=== PATIENT | male | born 2000 | race Caucasian/White ===

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

== ENCOUNTER → 2021-04-10 12:01 | Outpatient (CLI) | payer BC, SELFPAY | PROVIDERS: PCP Nurse Practitioner Family; Visit Provider Nurse Practitioner Family | DX: Z20.822 Contact with and (suspected) exposure to COVID-19 (principal) | CPT/HCPCS: U0003 ==

== ENCOUNTER → 2021-08-10 14:55 | Outpatient (CLI) | payer BC, SELFPAY | PROVIDERS: PCP Nurse Practitioner Family; Visit Provider Nurse Practitioner | DX: Z20.822 Contact with and (suspected) exposure to COVID-19 (principal) | CPT/HCPCS: C9803; U0003; U0005 ==

== ENCOUNTER 2022-02-27 17:06 | Emergency (ER) | payer BC, SELFPAY ==
[2022-02-27 17:16] VITALS: BP 135/90; PULSE 85; RESP 16; TEMP 37.2; O2SAT 100; BMI 26.6
--- NOTE | 2022-02-27 18:01 | HMH.EDUTC ---
[facility] [place] Clinical Impression: Viral syndrome, Anxiety Disposition: Home, Self-Care Condition on Discharge: Good Instructions: DI for Viral Syndrome Additional Instructions: Drink plenty of fluids. Take tylenol for pain or fever. Return if you begin to have difficulty breathing. Follow up with your regular doctor. GO TO THE ER FOR ANY WORSENING SYMPTOMS Referrals: Sharda Elias APRN [Primary Care Provider] - Time of Disposition: 18:38 Medical Decision Making - Medical Records Medical records reviewed: No: I reviewed the patient's medical records. - Bayron Inquiry Pt receiving controlled substance: No Vital Signs: 02/27/22 17:16 02/27/22 19:04 Temperature 99.0 F 99 F Temperature Source Oral Pulse Rate 85 Pulse Rate [Right] 85 Respiratory Rate 16 16 Blood Pressure 135/90 Blood Pressure [Right Arm] 135/90 Blood Pressure Mean [Right Arm] 105 Blood Pressure Source [Right Arm] Automatic Cuff Blood Pressure Position [Right Arm] Sitting 02 Sat by Pulse Oximetry 100 Oxygen Delivery Method Room Air - Lab Data Lab Results 02/27/22 18:05: Group A Strep Rapid Negative 02/27/22 18:08: Influenza Type A Ag Negative, Influenza Type B Ag Negative [facility] [place] - General Stated complaint: cold chills, tingling in hands and feet Time Seen by Provider: 02/27/22 18:01 Mode of Arrival: Ambulatory Source of Information: Patient Limitations: No Limitations Description of Symptoms (Recalled from Triage Doc. by RN): pt advises he started feeling bad this morning and has been chilling for about 3 hours. Advises earlier had some tingling in his hands. Pt appears very anxious. He advises he feels a little anxious, and that his body is starting ache all over. - History of Present Illness Provider Complaint: He states that he started feeling bad last night. Today, he has continued to feel bad and he had some chilling this morning. When he was chilling he bacame anxious and some tingling of his hands and feet. At this time he denies any c/o except that he continues to not feel well. - Related Data Allergies Allergy/AdvReac Type Severity Reaction Status Date / Time No Known Allergies Allergy Verified 07/18/20 22:32 [facility] History - Hepatitis A Screen Attestation statement:: This patient has been screened for Hepatitis A risk factors. I have reviewed the patient's past medical history: Yes Medical History: Denies:: Cancer, Diabetes Mellitus Type 1, Diabetes Mellitus Type 2, MRSA Amputation: No - Social History Alcohol Intake: never Occupational Status: employed ROS Obtained: Yes All systems reviewed & no additional complaints - Constitutional Constitutional: Reports chills, Denies fever(s), Reports poor appetite, Reports malaise - Eyes Eyes: Denies eye discharge - ENT Ears, Nose, Mouth, and Throat: Denies dizziness, Denies otalgia, Reports sore throat - Cardiovascular Cardiovascular: Denies chest pain - Respiratory Respiratory: Denies chest congestion, Reports cough Physical Exam - General General appearance: alert, in no apparent distress - Head Head exam: atraumatic, normocephalic, normal inspection - Eye Eye exam: Present: normal appearance, PERRL, EOMI - ENT ENT exam: Present: normal exam, normal oropharynx, mucous membranes moist, TM's normal bilaterally, normal external ear exam - Neck Neck exam: Present: normal inspection, full ROM, trachea midline. Absent: meningismus, lymphadenopathy - Chest Chest inspection: Present: normal inspection, symmetric chest wall rise. Absent: tenderness - Respiratory Respiratory exam: Present: normal lung sounds bilaterally. Absent: respiratory distress - Cardiovascular Cardiovascular exam: Present: regular rate, normal rhythm. Absent: JVD - Abdominal Exam Abdominal exam: Present: soft, normal bowel sounds. Absent: distention, tenderness, guarding - Extremities Exam Extremities exam: Present:
[2022-02-27 18:37] LABS: UTC Influenza A Antigen Negative (Negative)
[2022-02-27 18:38] LABS: UTC Influenza B Antigen Negative (Negative)
[2022-02-27 18:45] LABS: Strep Scrn Group A (Rapid) Negative (Negative)
[2022-02-27 19:04] VITALS: BP 135/90; PULSE 85; RESP 16; TEMP 37.2
== END 2022-02-27 19:05 | disposition home or self-care (01) ==
PROVIDERS: Emergency Provider Nurse Practitioner Family; PCP Nurse Practitioner Family
DX: B34.9 Viral infection, unspecified (principal); R20.2 Paresthesia of skin; F41.9 Anxiety disorder, unspecified
CPT/HCPCS: 87430; 87804; 99213; G0463

== ENCOUNTER 2022-04-12 09:48 | Emergency (ER) | payer BC, SELFPAY ==
[2022-04-12 10:25] VITALS: BP 141/73; PULSE 92; RESP 18; TEMP 36.7; O2SAT 99; BMI 22.6
--- NOTE | 2022-04-12 10:48 | HMH.EDUTC ---
[facility] [place] Clinical Impression: Mononucleosis Qualifiers: Infectious mononucleosis etiology: unspecified organism Infectious mononucleosis complication: without complication Qualified Code(s): B27.90 - Infectious mononucleosis, unspecified without complication Disposition: Home, Self-Care Condition on Discharge: Good Instructions: Mononucleosis, DI for Mononucleosis-Adult Additional Instructions: [place] symptoms will likely clear up in a month or less. But your body is still recovering for another month or two after that, so it?s important to take it easy. Here?s what doctors recommend: Avoid contact sports if your spleen is swollen. Even after symptoms go away, it may take a few additional weeks for the swelling in your spleen to go down, so you?re still at higher risk of rupturing it than usual. In addition to skipping contact sports, don?t engage in heavy lifting or vigorous exercise for at least a month or more after recovering from mono. (For kids, that means no roughhousing with siblings at home either). Eat an anti-inflammatory diet. Raeann recommends eating a diet focus on anti-inflammatory foods, which means you should be eating plenty of fruits and vegetables, and avoiding sugar, dairy, and processed foods. It seems to help ease symptoms, he says. Don?t push yourself to get better faster. Recovering from mono takes time and rest. If you try to resume your normal activities too soon, you could end up prolonging your illness and hindering your recovery process. ?Listen to your body,? suggests Raeann. ?Each person is different; do as much as you can.? Plan for your downtime. Both when you?re still experiencing symptoms and the few months after, you?ll need to spend more time than usual either sleeping or staying off your feet and resting. Plan to have some extra reading material on hand, or movies or TV shows to watch. At any point, whether you are still experiencing mono symptoms or not, see your doctor or go to the emergency room (ER) immediately if you experience any sudden or sharp pains in the left side of your upper abdomen (which could be a sign that your spleen may be ruptured), if you start having difficulty breathing, or if you are urinating much less than normal (indicating that you?re dehydrated). Self-care: Rest: Rest as needed. Slowly start to do more each day as you feel better. Liquids: Liquids will help decrease your fever and prevent dehydration. Ask your primary healthcare provider how much liquid to drink each day and which liquids are best for you. Soothe your throat: Suck on hard candy or throat lozenges. Eat popsicles or frozen drinks. Mix 1 teaspoon of salt in 8 ounces of warm water and gargle. Avoid exercise and contact sports: Ask when you can return to your usual activities and contact sports. Seek care immediately or call 911 if: You urinate very little or not at all. You have severe pain in your abdomen or shoulder. You have trouble swallowing because of the pain. You have shortness of breath. You are confused or have a seizure. Prescriptions: Azithromycin [Z-Jared 250mg Tab] 250 mg PO DIRECTED #6 tab Transmission Status: Pending to [id number] Referrals: Sharda Elias APRN [Primary Care Provider] - As needed Forms: Work/School Release Time of Disposition: 12:02 Medical Decision Making - Bayron Inquiry Pt receiving controlled substance: No Bayron was queried for this patient: No Vital Signs: 04/12/22 10:25 04/12/22 11:24 Temperature 98.1 F 98.1 F Temperature Source Oral Pulse Rate 92 H Pulse Rate [Right Brachial] 92 H Respiratory Rate 18 18 Blood Pressure 141/73 H Blood Pressure [Right Arm] 141/73 H Blood Pressure Mean [Right Arm] 95 Blood Pressure Source [Right Arm] Automatic Cuff Blood Pressure Position [Right Arm] Sitting 02 Sat by Pulse Oximetry 99 Oxygen Delivery Method Room Air - Lab Data Lab results reviewed: Yes: I reviewed the patipablo
[2022-04-12 10:52] LABS: Strep Scrn Group A (Rapid) Negative (Negative)
[2022-04-12 11:24] VITALS: BP 141/73; PULSE 92; RESP 18; TEMP 36.7; O2SAT 99
[2022-04-12 11:26] LABS: Monoscreen (Rapid) Positive (Negative)
== END 2022-04-12 12:09 | disposition home or self-care (01) ==
PROVIDERS: Emergency Provider Nurse Practitioner; PCP Nurse Practitioner Family
DX: B27.90 Infectious mononucleosis, unspecified without complication (principal)
CPT/HCPCS: 86318; 87430; 99212; G0463

== ENCOUNTER → 2022-06-24 07:17 | Outpatient (CLI) | payer BC, SELFPAY ==
[2022-06-24 08:20] LABS: Basophils # 0.1 K/mm3 (0-0.2); Basophils % 1.3 % (0.1-2.0); Eosinophils # 0.1 K/mm3 (0.0-0.4); Eosinophils % 1.2 % (0.1-12.0); Hematocrit 47.8 % (42.0-52.0); Hemoglobin 15.5 g/dL (14.1-18.0); Lymphocytes # 3.3 K/mm3 (0.7-4.5); Lymphocytes % 42.9 % (10-50); Mean Corpuscular HGB Conc 32.4 g/dL (31.8-35.4); Mean Corpuscular Hemoglobin 29.1 pg (27.0-31.2); Mean Platelet Volume 8.2 fl (7.4-10.4); Monocytes # 0.5 K/mm3 (0.1-1.0); Neutrophils # 3.7 K/mm3 (1.8-7.8); Neutrophils % 47.6 % (37.0-80.0); Platelet Count 323 K/mm3 (142-424); Red Blood Count 5.31 M/mm3 (4.60-6.20); Red Cell Distribution Width 13.7 % (11.5-17.5); White Blood Count 7.7 K/mm3 (4.8-10.8)
[2022-06-24 08:35] LABS: Alanine Aminotransferase 18 U/L (12-78); Albumin Level 4.5 g/dl (3.5-5.0); Alkaline Phosphatase 75 U/L (38-126); Aspartate Amino Transferase 27 U/L (17-59); Bilirubin,Total 0.5 mg/dl (0.2-1.3); Blood Urea Nitrogen 14 mg/dl (9-20); Calcium 9.8 mg/dl (8.4-10.2); Carbon Dioxide 31 mmol/L (22.0-30.0); Chloride 104 mmol/L (98-107); Estimated Glomerular Filt Rate 122 ml/min (>60); GFR (African American) 148 ML/MIN (>60); Glucose 81 mg/dl (74-100); Sodium 140 mmol/L (136-145)
[2022-06-24 08:38] LABS: Albumin/Globulin Ratio 1.6 (1.1-1.8); Globulin 2.9 g/dL (1.3-3.2); Total Protein,Serum 7.4 g/dl (6.3-8.2)
[2022-06-24 08:40] LABS: C-Reactive Protein 0.4 mg/L (0-4)
[2022-06-24 08:51] LABS: 25-OH Vitamin D, Total 61.3 ng/mL (30-100)
[2022-06-24 09:24] LABS: Vitamin B12 376 pg/mL (239-931)
[2022-06-25 08:18] LABS: Testosterone,Total 823 ng/dL (264-916)
[2022-06-25 14:20] LABS: EBV Ab VCA, IgG 49.1 U/mL (0.0-17.9); EBV Ab VCA, IgM 83.5 U/mL (0.0-35.9); EBV Nuclear Antigen Ab, IgG <18.0 U/mL (0.0-17.9)
[2022-06-25 22:59] LABS: Antinuclear Antibodies (ANA) Negative
== END ==
PROVIDERS: PCP Nurse Practitioner Family; Visit Provider Nurse Practitioner Family
DX: G93.3 Postviral and related fatigue syndromes (principal); N52.9 Male erectile dysfunction, unspecified
CPT/HCPCS: 36415; 80053; 82306; 82607; 84403; 84443; 85025; 86038; 86140; 86664; 86665

== ENCOUNTER → 2022-07-13 14:51 | Outpatient (CLI) | payer BC, SELFPAY ==
--- NOTE | 2022-07-13 14:59 | US_ITS ---
FINAL REPORT TECHNIQUE: Ultrasound images of the testicles were obtained bilaterally. Color Doppler images were obtained. CLINICAL HISTORY: LEFT VARICOCELE FINDINGS: The right testicle measures 4.4 x 2.9 x 2.5 cm. The left testicle measures 4.3 x 2.6 x 1.8 cm. There is a moderate left varicocele. Arterial flow is identified bilaterally. No intratesticular masses are identified. IMPRESSION: Moderate left varicocele. No evidence of testicular torsion or mass. Reviewed, Interpreted and Dictated by Ben Cheema MD Transcribed by Barbi Denny Authenticated and [facility]
== END ==
PROVIDERS: PCP Nurse Practitioner Family; Visit Provider Nurse Practitioner Family
DX: I86.1 Scrotal varices (principal)
CPT/HCPCS: 76870

== ENCOUNTER 2023-10-06 18:34 | Emergency (ER) | payer BC, SELFPAY ==
[2023-10-06 19:00] VITALS: BP 117/84; PULSE 84; RESP 20; TEMP 37; O2SAT 97; BMI 23.6
--- NOTE | 2023-10-06 19:13 | XR_ITS ---
PROCEDURE INFORMATION: Exam: XR Left Tibia and Fibula Exam date and time: 10/06/2023 7:09 PM Age: 23 years old Clinical indication: Injury or trauma; Other: Nail went in calf; Work related; Puncture; Lower leg; Left; With foreign body TECHNIQUE: Imaging protocol: Radiologic exam of the left tibia and fibula. Views: 2 views. COMPARISON: No relevant prior studies available. FINDINGS: Bones/joints: Normal. Soft tissues: Normal. IMPRESSION: No acute findings.
--- NOTE | 2023-10-06 19:32 | EXP.UTC ---
Discharge Plan Disposition Patient Disposition: Home, Self-Care Condition: Good Prescriptions Prescriptions: New amoxicillin-pot clavulanate 875-125 mg Tablet 1 tab PO Q12H 7 Days Qty: 14 0RF Referrals Follow up/Referrals: Sharda Elias APRN [Primary Care Provider] - See instructions Activity Restrictions/Add. Instructions Additional Instructions/Restrictions: Clean area with antibacterial soap and water May use Neosporin on puncture wound Keep leg elevated to help with swelling Follow up with your Family Doctor if no improvement or any worsening of symptoms Return if needed Take medication as prescribed Motrin and/or Tylenol for pain Clinical Impressions Clinical Impression: Puncture wound Stand Alone Forms Stand Alone Forms: Work/School Release Instructions Patient Instructions: DI for Puncture Wound Discharge ED Provider: Chikis Mixon [facility] [place] General Stated complaint: AO10/06 Lt calf- nail poke Mode of Arrival: Ambulatory Source of Information: Patient and Parent(s) Limitations: No Limitations Time Seen by Provider: 10/06/23 19:33 Description of Symptoms (Recalled from Triage Doc. by RN): PATIENT STATES HE WAS STABBED BY A NAIL TO LEFT CALF APPROX 1 HOUR [employer]ILITY WORK[employer] HEENT Symptoms (Recalled from RN notes): No Resp Symptoms (Recalled from RN notes): No Skin Symptoms (Recalled from RN notes): Yes MS Symptoms (Recalled from RN notes): No Functional Status (Recalled from RN notes): WNL History of Present Illness Provider Complaint: Patient states that he was throwing boards out of the back of his truck and lost his balance and fell on some boards and there was nail sticking out of one of them that went into his left lower leg States that he pulled it out and it bleed quite a bit but he was worried about infection and needing a tetanus where the nail was so dandre Related Data Previous Rx's Medication Instructions Recorded amoxicillin 875 mg-potassium 1 tab PO Q12H 7 days #14 tabs 10/06/23 clavulanate 125 mg tablet Allergies Allergy/AdvReac Type Severity Reaction Status Date / Time No Known Allergies Allergy Verified 07/18/20 22:32 Worker's Comp Is this a Worker's Comp case?: No [facility] Disclaimer: The information contained in this section may have been updated after the patient was seen, as this information can be updated by other users. Medical History (Updated 10/06/23 @ 19:43 by Chikis Mixon APRN) Bicuspid aortic valve Mesenteric adenitis Surgical History (Updated 10/06/23 @ 19:20 by Marii Abbasi RN) H/O wisdom tooth extraction Social History Smoking Status: Unknown if ever smoked alcohol intake: never current occupational status: other Travel in the last 8 weeks: None ROS Obtained: Yes All systems reviewed & no additional complaints except as documented and Yes Systems reviewed as appropriate & no additional complaints except as documented Constitutional Constitutional: Reports system reviewed and no additional complaints, except as documented and Reports as per HPI ENT Ears, Nose, Mouth, and Throat: Reports system reviewed and no additional complaints, except as documented and Reports as per HPI Cardiovascular Cardiovascular: Reports system reviewed and no additional complaints, except as documented and Reports as per HPI Respiratory Respiratory: Reports system reviewed and no additional complaints, except as documented and Reports as per HPI Gastrointestinal Gastrointestingal: Reports system reviewed and no additional complaints, except as documented and as per HPI Integumentary/Breasts Skin/Breast: Reports system reviewed and no additional complaints, except as documented, Reports as per HPI and Reports other (puncture wound left lower leg) Physical Exam General General appearance: alert and in no apparent distress ENT ENT exam: Present mucous membranes moist Chest Chest inspection: Present normal inspection and symmetric chest wall rise Re
[2023-10-06 19:51] VITALS: BP 117/84; PULSE 84; RESP 20; TEMP 37; O2SAT 97
== END 2023-10-06 19:57 | disposition home or self-care (01) ==
PROVIDERS: Emergency Provider Nurse Practitioner; PCP Nurse Practitioner Family
DX: S81.832A Puncture wound without foreign body, left lower leg, initial encounter (principal); Z23 Encounter for immunization; W45.0XXA Nail entering through skin, initial encounter
CPT/HCPCS: 73590; 90715; 96372; 99212; 99214; G0463

== ENCOUNTER 2024-04-02 23:26 | Observation (INO) | payer BC, SELFPAY ==
[2024-04-02 23:28] VITALS: BP 141/82; PULSE 87; RESP 18; TEMP 36.7; O2SAT 97; BMI 24.3
[2024-04-03] VITALS (29 sets, daily range): BP systolic 101–149; BP diastolic 56–96; PULSE 68–101; RESP 15–22; TEMP 36.4–43; O2SAT 67–100; BMI 27.8
[2024-04-03] MEDS: LACTATED RINGERS 1000ML 1,000 ML 999 ML IV (00:05)
[2024-04-03] MEDS: ONDANSETRON 4MG/2ML VIAL 4 MG IV ×2 (00:05→03:25)
--- NOTE | 2024-04-03 00:12 | ED_ITS ---
Discharge Plan Disposition Patient Disposition: Admitted Chief Complaint: Nausea/Vomiting/Diarrhea Clinical Impressions Clinical Impression: Nausea & vomiting, Acute appendicitis Discharge ED Provider: Kayleen James General Adult HPI General Chief complaint: Nausea/Vomiting/Diarrhea Stated complaint: severe abd pain, vomiting Time Seen by Provider: 04/02/24 23:40 Mode of Arrival: Ambulatory Source of Information: Patient Limitations: No Limitations Description of Symptoms (Recalled from ER Triage Doc. by RN): patient ambulatory to ED with complaints of nausea/vomiting since this morning. Patient afebrile at triage, but also complains of body aches, and chills. Slight pain in epigastric region. No known sick contacts that he knows of. History of Present Illness HPI narrative: 24-year-old male presents to the ER with concerns of abdominal pain that has been progressing through the day that developed into nausea and vomiting this evening. Patient complains of bodyaches and chills. He describes pain in the middle of his abdomen he also describes pain in his right lower quadrant. He states it feels somewhat better now than it did earlier, but he still feels ill. Patient has no history of abdominal surgeries, no daily medications, no known drug allergies. Related Data Previous Rx's Medication Instructions Recorded amoxicillin 875 mg-potassium 1 tab PO Q12H 7 days #14 tabs 10/06/23 clavulanate 125 mg tablet Allergies Allergy/AdvReac Type Severity Reaction Status Date / Time No Known Allergies Allergy Verified 07/18/20 22:32 [facility] Disclaimer: The information contained in this section may have been updated after the patient was seen, as this information can be updated by other users. Medical History (Updated 04/03/24 @ 02:24 by Kayleen James MD) Mesenteric adenitis Bicuspid aortic valve Surgical History (Updated 10/06/23 @ 19:20 by Marii Abbasi RN) H/O wisdom tooth extraction Social History (Updated 10/06/23 @ 19:51 by Chikis Mixon APRN) Smoking Status: Never smoker alcohol intake: never current occupational status: other Travel in the last 8 weeks: None ROS Obtained: Yes All systems reviewed & no additional complaints except as documented Constitutional Constitutional: Denies chills, Denies fever(s), Denies headache(s) and Denies weakness Eyes Eyes: Denies change in vision ENT Ears, Nose, Mouth, and Throat: Denies dizziness, Denies headache(s), Denies nasal congestion and Denies sore throat Cardiovascular Cardiovascular: Denies chest pain, Denies dyspnea and Denies leg edema Respiratory Respiratory: Denies cough and Denies dyspnea Gastrointestinal Gastrointestingal: Reports abdominal pain, diarrhea (1 episode), nausea and vomiting (Nonbloody, nonbilious); Denies constipation Genitourinary Male Genitourinary: Denies difficulty urinating Musculoskeletal Musculoskeletal: Denies arthralgias, Denies myalgias, Denies numbness and Denies tingling Integumentary/Breasts Skin/Breast: Denies change in pigmentation Neurologic Neurologic: Denies dizziness, Denies headache(s), Denies numbness, Denies tingling and Denies weakness Physical Exam General General appearance: alert and in no apparent distress Head Head exam: atraumatic and normocephalic Eye Eye exam: Present PERRL and EOMI ENT ENT exam: Present mucous membranes moist Neck Neck exam: Present normal inspection and full ROM Chest Chest inspection: Present symmetric chest wall rise Respiratory Respiratory exam: Present normal lung sounds bilaterally; Absent respiratory distress, wheezes or stridor Cardiovascular Cardiovascular exam: Present regular rate and normal rhythm Abdominal Exam Abdominal exam: Present soft and tenderness (Periumbilical, right lower quadrant); Absent distention, guarding or rebound Extremities Exam Extremities exam: Present full ROM Neurological Exam Neurological exam: Present alert and oriented X3; Absent motor sensory deficit Psychiatric Psychiatric exam: Present normal affect and normal mood Skin Skin exam: Present warm and dry Medical Decision Making [place] Inquiry Pt receiving controlled substance: No Vital Signs: 04/02/24 23:28 04/03/24 00:02 04/03/24 00:30 Temperature 98.1 F Temperature Source Oral Pulse Rate 79 77 Pulse Rate [Right] 87 Respiratory Rate 18 Blood Pressure 113/76 132/84 Blood Pressure [Right Arm] 141/82 H Blood Pressure Mean 89 96 Blood Pressure Mean [Right Arm] 101 Blood Pressure Source [Right Arm] Automatic Cuff Blood Pressure Position [Right Arm] Sitting 02 Sat by Pulse Oximetry 97 100 97 Oxygen Delivery Method Room Air Lab Data Lab Results 04/02/24 23:59: WBC 15.4 H, RBC 5.55, Hgb 16.3, Hct 49.1, MCV 88.4, MCH 29.3, MCHC 33.1, RDW 13.5, Plt Count 323, MPV 8.5, Neut % (Auto) 88.2 H, Lymph % (Auto) 5.9 L, [place] % (Auto) 4.5, Eos % (Auto) 1.0, Baso % (Auto) 0.3, Neut # (Auto) 13.6 H, Lymph # (Auto) 0.9, [place] # (Auto) 0.7, Eos # (Auto) 0.2, Baso # (Auto) 0.1, Total Counted 100, Neutrophils % (Manual) 91 H, Lymphocytes % (Manual) 4 L, Monocytes % (Manual) 2, Eosinophils % (Manual) 2, Basophils % (Manual) 1.0, Platelet Estimate Normal, RBC Morphology Normal, PT 11.1, INR 1.03, Sodium 140, Potassium 4.2, Chloride 105, Carbon Dioxide 26, Anion Gap 13.2, BUN 12, Creatinine 0.80, Estimated Creat Clear 147, Estimated GFR 120, Est GFR ( Amer) 145, Glucose 103 H, Calcium 9.8, Total Bilirubin 0.9, AST 37, ALT 35, Alkaline Phosphatase 89, Total Protein 8.0, Albumin 4.7, Globulin 3.3 H, Albumin/Globulin Ratio 1.4 04/03/24 00:02: Lipase 63 04/03/24 00:50: Lactate 1.4 04/02/24 23:59 04/02/24 23:59 Orders (Tests/Meds): ED MEDICATIONS Generic Name Dose Route Start Last Admin Trade Name Freq PRN Reason Stop Dose Admin Ampicillin Sodium/Sulbactam 100 mls @ 200 mls/hr 04/03/24 02:19 Sodium 3 gm/ Sodium Chloride IV 04/03/24 02:20 ONCE ONE Sodium Chloride 10 ml 04/03/24 00:53 04/03/24 00:54 Sodium Chloride 0.9% 10ml Syr (Rad Only) IV 05/03/24 00:52 10 ml NEEDED PRN Administration Maintain IV Site Discontinued Medications Generic Name Dose Route Start Last Admin Trade Name Freq PRN Reason Stop Dose Admin Lactated Ringer's 1,000 mls @ 999 mls/hr 04/02/24 23:51 04/03/24 00:05 Lactated Ringer's 1000 Ml Bag IV 04/03/24 00:51 999 mls/hr .Q1H1M ONE Administration Iopamidol 75 ml 04/03/24 00:53 04/03/24 00:54 Iopamidol-370 (76%);100ml Bottle IV 04/03/24 00:54 75 ml ONCE ONE Administration Ondansetron HCl 4 mg 04/02/24 23:53 04/03/24 00:05 Ondansetron 4mg/2ml Vial IV 04/02/24 23:54 4 mg ONCE ONE Administration ORDERS Category Date Time Status CT abdomen pelvis w con Stat Cat Scan 04/03/24 00:12 Completed Complete Blood Count Auto Diff Stat Lab 04/02/24 23:59 Completed Comprehensive Metabolic Panel Stat Lab 04/02/24 23:59 Completed Lactic Acid Stat Lab 04/03/24 00:50 Completed Lipase Stat Lab 04/03/24 00:02 Completed PT/INR [Prothrombin Time INR] Stat Lab 04/02/24 23:59 Completed Medical Decision Narrative: In summary, 24-year-old male presents to the ER with concerns of periumbilical and right lower quadrant abdominal pain as well as nausea, vomiting, 1 episode of diarrhea. On initial evaluation patient is hemodynamically stable, afebrile, patient has mild tenderness to palpation of the periumbilical and right lower quadrant without rebound or guarding, abdomen is nonacute. Cardiopulmonary exam reassuring, remainder of exam benign. Differential diagnose includes but not limited to viral syndrome, appendicitis, colitis, electrolyte abnormality, dehydration. Patient received IV fluids, Zofran. Labs personally reviewed demonstrate leukocytosis with left shift, no anemia, CMP without electrolyte abnormality, no findings of kidney or liver dysfunction, normal lactate and lipase. CT abdomen pelvis personally interpreted demonstrates mildly distended appendix with appendicolith present. I am concerned for early appendicitis. Radiology read is in agreement. I discussed this case with Dr. Cordoba with general surgery who would like the patient to have a dose of Unasyn and be admitted. He anticipates likely having to remove patient's appendix in the next 24 hours. I ordered Unasyn, maintenance fluids. Patient has been and continues to be NPO. I discussed this case with the hospitalist who will be admitting the patient. Patient is comfortable with this plan. Critical Care Critical Care Time Critical Care Time: No
--- NOTE | 2024-04-03 00:12 | CT_ITS ---
PROCEDURE INFORMATION: Exam: CT Abdomen And Pelvis With Contrast Exam date and time: 04/03/2024 12:47 AM Age: 24 years old Clinical indication: Abdominal pain; Patient HX: N/v; Additional info: Rlq pain, and periumbilical tenderness TECHNIQUE: Imaging protocol: Computed tomography of the abdomen and pelvis with contrast. Radiation optimization: All CT scans at this facility use at least one of these dose optimization techniques: automated exposure control; mA and/or kV adjustment per patient size (includes targeted exams where dose is matched to clinical indication); or iterative reconstruction. Contrast material: ISOVUE; Contrast volume: 75 ml; Contrast route: IV; COMPARISON: 1. US TESTICULAR 07/13/2022 3:16 PM 2. CR CXR2V XR chest 2V 01/12/2019 11:23 AM FINDINGS: Liver: Normal. Gallbladder and bile ducts: No acute process. Pancreas: Normal. Spleen: Normal. Adrenal glands: The adrenal glands appear normal. Kidneys and ureters: There are no soft tissue renal masses or hydronephrosis. Stomach and bowel: Mild fluid distention of small-bowel loops. Appendix: The appendix is mildly distended with stool and small stones but without significant inflammatory change. Early appendicitis can be considered. Intraperitoneal space: Unremarkable. Vasculature: The abdominal aorta and its major branches appear normal without evidence of aneurysm or stenosis. There are pelvic phleboliths. Lymph nodes: No lymphadenopathy. Urinary bladder: There is moderate distention of the urinary bladder. Reproductive: No acute process. Bones/joints: The visualized osseous structures of the abdomen and pelvis appear normal for patient age. Soft tissues: There is a small fat containing umbilical hernia. IMPRESSION: The appendix is mildly distended with stool and small stones but without significant inflammatory change. Early appendicitis can be considered.
[2024-04-03 00:32] LABS: Chloride 105 mmol/L (98-107); Potassium 4.2 mmoL/L (3.5-5.1); Sodium 140 mmol/L (136-145)
[2024-04-03 00:33] LABS: Basophils # 0.1 K/mm3 (0-0.2); Basophils % 0.3 % (0.1-2.0); Eosinophils # 0.2 K/mm3 (0.0-0.4); Hematocrit 49.1 % (42.0-52.0); Hemoglobin 16.3 g/dL (14.1-18.0); Lymphocytes # 0.9 K/mm3 (0.7-4.5); Lymphocytes % 5.9 % (10-50); Mean Corpuscular HGB Conc 33.1 g/dL (31.8-35.4); Mean Corpuscular Hemoglobin 29.3 pg (27.0-31.2); Mean Corpuscular Volume 88.4 fl (80-94); Mean Platelet Volume 8.5 fl (7.4-10.4); Monocytes # 0.7 K/mm3 (0.1-1.0); Monocytes % 4.5 % (1.7-9.3); Neutrophils # 13.6 K/mm3 (1.8-7.8); Neutrophils % 88.2 % (37.0-80.0); Platelet Count 323 K/mm3 (142-424); Red Blood Count 5.55 M/mm3 (4.60-6.20); Red Cell Distribution Width 13.5 % (11.5-17.5); White Blood Count 15.4 K/mm3 (4.8-10.8)
[2024-04-03 00:34] LABS: Alanine Aminotransferase 35 U/L (12-78); Aspartate Amino Transferase 37 U/L (17-59); Blood Urea Nitrogen 12 mg/dl (9-20); Creatinine Clearance Estimated 147 mL/min (50-200); Estimated Glomerular Filt Rate 120 ml/min (>60); GFR (African American) 145 ML/MIN (>60); MANUAL DIFFERENTIAL MANUAL DIFFERENTIAL (MANUAL DIFF)
[2024-04-03 00:35] LABS: Albumin Level 4.7 g/dl (3.5-5.0); Albumin/Globulin Ratio 1.4 (1.1-1.8); Alkaline Phosphatase 89 U/L (38-126); Anion Gap 13.2 mEq/L (5-15); Bilirubin,Total 0.9 mg/dl (0.2-1.3); Calcium 9.8 mg/dl (8.4-10.2); Carbon Dioxide 26 mmol/L (22.0-30.0); Globulin 3.3 g/dL (1.3-3.2); Glucose 103 mg/dl (74-100); INR 1.03 (0.9-1.1); Prothrombin Time 11.1 seconds (10.1-12.5)
[2024-04-03 00:53] LABS: Lipase 63 U/L (23-300)
[2024-04-03] MEDS: SODIUM CHLORIDE 0.9% 10ML SYR (RAD ONLY) 10 ML IV (00:54)
[2024-04-03] MEDS: IOPAMIDOL-370 (76%);100ML BOTTLE 75 ML IV (00:54)
[2024-04-03 01:19] LABS: Lactic Acid 1.4 mmol/L (0.7-2.1)
[2024-04-03 01:34] LABS: Eosinophils % 2 % (0-3); Lymphocytes % 4 % (10-50); Monocytes % 2 % (2-9); Neutrophils % 91 % (42-76); Total Cells Counted 100
[2024-04-03 01:35] LABS: Platelet Estimate Normal; RBC Morphology Normal
--- NOTE | 2024-04-03 02:15 | PC.NURSE ---
Dr. James speaking with Dr. Cordoba at this time.
--- NOTE | 2024-04-03 02:33 | EXP.HP ---
History of Present Illness *Admission Date: 04/03/24 *Reason for visit:: Right lower quadrant pain *History of present illness: This is a 24-year-old male with no significant past medical history who presents to the emergency department with abdominal pain, nausea and vomiting. He reports body aches and chills as well as pain right in the middle of his abdomen. He states pain was better than it was earlier but still feels not well. Patient states the pain started in the middle of his abdomen and then radiated to his right lower side, also had associated bloating. Denies any abdominal history. Denies any prior surgeries. Emergency department workup notable for distended appendix with appendicolith present. Laboratory evaluation unremarkable. Dr. Cordoba with surgery consulted and recommends n.p.o. with consult in the morning. He is admitted to hospital service for further evaluation management. [facility] Disclaimer: The information contained in this section may have been updated after the patient was seen, as this information can be updated by other users. Medical History Mesenteric adenitis Bicuspid aortic valve Surgical History H/O wisdom tooth extraction Social History (Updated 10/06/23 @ 19:51 by Chikis Mixon APRN) Smoking Status: Never smoker alcohol intake: never current occupational status: other Travel in the last 8 weeks: None Review of Systems Review of Systems Review of systems:: pertinent systems reviewed and negative unless documented below Constitutional Constitutional: Denies headache(s) and Denies weakness ENT Ears, Nose, Mouth, and Throat: Denies dizziness and Denies headache(s) *Musculoskeletal Musculoskeletal: Denies numbness and Denies tingling *Neurologic Neurologic: Denies dizziness, Denies headache(s), Denies numbness, Denies tingling and Denies weakness Meds Home Medications and Allergies Home Medications Medication Instructions Recorded Confirmed Type amoxicillin 875 mg-potassium 1 tab PO Q12H 7 days #14 tabs 10/06/23 Rx clavulanate 125 mg tablet New Prescriptions to Start Prescriptions: Allergies Allergy/AdvReac Type Severity Reaction Status Date / Time No Known Allergies Allergy Verified 07/18/20 22:32 Exam Data for Last 24 hours Vital signs and Labs for Last 24 Hours: Temp Pulse Resp BP Pulse Ox O2 Del Method 98.1 F 77 18 132/84 97 Room Air 04/02/24 23:28 04/03/24 00:30 04/02/24 23:28 04/03/24 00:30 04/03/24 00:30 04/02/24 23:28 Laboratory Results - last 24 hr 04/02/24 23:59: WBC 15.4 H, RBC 5.55, Hgb 16.3, Hct 49.1, MCV 88.4, MCH 29.3, MCHC 33.1, RDW 13.5, Plt Count 323, MPV 8.5, Neut % (Auto) 88.2 H, Lymph % (Auto) 5.9 L, [place] % (Auto) 4.5, Eos % (Auto) 1.0, Baso % (Auto) 0.3, Neut # (Auto) 13.6 H, Lymph # (Auto) 0.9, [place] # (Auto) 0.7, Eos # (Auto) 0.2, Baso # (Auto) 0.1, Total Counted 100, Neutrophils % (Manual) 91 H, Lymphocytes % (Manual) 4 L, Monocytes % (Manual) 2, Eosinophils % (Manual) 2, Basophils % (Manual) 1.0, Platelet Estimate Normal, RBC Morphology Normal, PT 11.1, INR 1.03, Sodium 140, Potassium 4.2, Chloride 105, Carbon Dioxide 26, Anion Gap 13.2, BUN 12, Creatinine 0.80, Estimated Creat Clear 147, Estimated GFR 120, Est GFR ( Amer) 145, Glucose 103 H, Calcium 9.8, Total Bilirubin 0.9, AST 37, ALT 35, Alkaline Phosphatase 89, Total Protein 8.0, Albumin 4.7, Globulin 3.3 H, Albumin/Globulin Ratio 1.4 04/03/24 00:02: Lipase 63 04/03/24 00:50: Lactate 1.4 I & O for Last 24 hours: Intake & Output 03/31/24 04/01/24 04/02/24 04/03/24 23:59 23:59 23:59 23:59 Weight 72.575 kg Constitutional Constitutional: no acute distress *Routine HEENT Exam Head: Present normocephalic Eye: Present EOMI and PERRL ENT: Present mucous membranes moist *Routine Neck Exam Neck: Present supple; Absent lymphadenopathy *Routine Respiratory Exam Respiratory: Present CTA bilaterally *Routine Cardiovascular Exam Cardiovascular: Present RRR *Routine Abdominal Exam Abdominal: Present soft, normoactive bowel sounds and tenderness (Right lower quadrant) *Routine Rectal Exam Rectal:: deferred *Routine Genitalia Exam Genitalia:: deferred *Routine Extremities Exam Extremities: Absent cyanosis, clubbing or edema *Routine Skin Exam Skin: Present warm; Absent rash *Routine Neurological Exam Neurological: Present alert and oriented X3 Assessment and Plan *Assessment and plan (1) Acute appendicitis: Status: Acute Category: Medical Code(s): K35.80 - Unspecified acute appendicitis (2) Nausea & vomiting: Status: Acute Category: Medical Code(s): R11.2 - Nausea with vomiting, unspecified Plan #Acute appendicitis Dr. Cordoba consulted, appreciate recommendations N.p.o. with maintenance IV fluids Continue multimodal pain medication Unasyn per general surgery Symptomatic and supportive care DVT PPx, deferred ambulatory Full code
[2024-04-03] MEDS: AMPICILLIN/SULBACTAM 3 GM in 0.9 % SODIUM CHLORIDE 100 ML IV ×2 (02:38→11:49)
[2024-04-03] MEDS: LACTATED RINGERS 1000ML 1,000 ML 125 ML IV (03:10)
[2024-04-03] MEDS: MORPHINE 2MG/ML SYRINGE 2 MG IV ×2 (03:43→17:35)
--- NOTE | 2024-04-03 04:37 | PC.NURSE ---
pt admitted for appendicitis. npo, reports nausea and gen abd pain, meds given per mar. abd is full and tender
--- NOTE | 2024-04-03 04:49 | PC.NURSE ---
pt vomited 200 ml of milky pink colored milky emesis
[2024-04-03 06:35] LABS: Basophils % 0.2 % (0.1-2.0); Eosinophils % 0.4 % (0.1-12.0); Hematocrit 42.7 % (42.0-52.0); Lymphocytes # 0.7 K/mm3 (0.7-4.5); Lymphocytes % 6.8 % (10-50); Mean Corpuscular HGB Conc 33.3 g/dL (31.8-35.4); Mean Corpuscular Hemoglobin 29.3 pg (27.0-31.2); Mean Corpuscular Volume 88.2 fl (80-94); Mean Platelet Volume 8.4 fl (7.4-10.4); Monocytes # 0.5 K/mm3 (0.1-1.0); Monocytes % 5.2 % (1.7-9.3); Neutrophils # 9.1 K/mm3 (1.8-7.8); Neutrophils % 87.4 % (37.0-80.0); Platelet Count 251 K/mm3 (142-424); Red Blood Count 4.85 M/mm3 (4.60-6.20); Red Cell Distribution Width 13.2 % (11.5-17.5); White Blood Count 10.4 K/mm3 (4.8-10.8)
--- NOTE | 2024-04-03 06:50 | EXP.SURG.CON ---
History of Present Illness *Admission Date: 04/03/24 *Reason for visit:: Appendicitis *History of present illness: This is a 24-year-old male with no significant past medical history who presents to the emergency department with abdominal pain, nausea and vomiting. Symptoms began with abdominal bloating on 04/01/2024. This was followed by nausea. He reports body aches and chills as well as pain right in the middle of his abdomen. After vomiting he had some improvement in his symptoms. He did develop some pain. Patient states the pain started in the middle of his abdomen and then radiated to his right lower side, also had associated bloating. Denies any abdominal history. Denies any prior surgeries. Emergency department workup revealed leukocytosis with left shift. CT scan notable for distended fluid-filled appendix with stool and small appendicoliths consistent with early noncomplicated appendicitis. Laboratory evaluation unremarkable. He is admitted to hospital service for further evaluation management. Patient states that he did have similar symptoms several weeks ago which were self-limited but persisted for about 4 days. [facility] Disclaimer: The information contained in this section may have been updated after the patient was seen, as this information can be updated by other users. Medical History Mesenteric adenitis Bicuspid aortic valve Surgical History H/O wisdom tooth extraction Social History (Updated 10/06/23 @ 19:51 by Chikis Mixon APRN) Smoking Status: Never smoker alcohol intake: never current occupational status: other Travel in the last 8 weeks: None Review of Systems Review of Systems Review of systems:: pertinent systems reviewed and negative unless documented below Constitutional Constitutional: Denies headache(s) and Denies weakness ENT Ears, Nose, Mouth, and Throat: Denies dizziness and Denies headache(s) *Musculoskeletal Musculoskeletal: Denies numbness and Denies tingling *Neurologic Neurologic: Denies dizziness, Denies headache(s), Denies numbness, Denies tingling and Denies weakness Meds Home Medications and Allergies Home Medications Medication Instructions Recorded Confirmed Type amoxicillin 875 mg-potassium 1 tab PO Q12H 7 days #14 tabs 10/06/23 Rx clavulanate 125 mg tablet New Prescriptions to Start Prescriptions: Allergies Allergy/AdvReac Type Severity Reaction Status Date / Time No Known Allergies Allergy Verified 07/18/20 22:32 Exam (Inpt) Vital signs and Labs for Last 24 Hours: Temp Pulse Resp BP Pulse Ox O2 Del Method 98.1 F 76 16 112/59 L 98 Room Air 04/03/24 04:00 04/03/24 04:00 04/03/24 04:00 04/03/24 04:00 04/03/24 04:00 04/03/24 05:00 Laboratory Results - last 24 hr 04/02/24 23:59: WBC 15.4 H, RBC 5.55, Hgb 16.3, Hct 49.1, MCV 88.4, MCH 29.3, MCHC 33.1, RDW 13.5, Plt Count 323, MPV 8.5, Neut % (Auto) 88.2 H, Lymph % (Auto) 5.9 L, [place] % (Auto) 4.5, Eos % (Auto) 1.0, Baso % (Auto) 0.3, Neut # (Auto) 13.6 H, Lymph # (Auto) 0.9, [place] # (Auto) 0.7, Eos # (Auto) 0.2, Baso # (Auto) 0.1, Total Counted 100, Neutrophils % (Manual) 91 H, Lymphocytes % (Manual) 4 L, Monocytes % (Manual) 2, Eosinophils % (Manual) 2, Basophils % (Manual) 1.0, Platelet Estimate Normal, RBC Morphology Normal, PT 11.1, INR 1.03, Sodium 140, Potassium 4.2, Chloride 105, Carbon Dioxide 26, Anion Gap 13.2, BUN 12, Creatinine 0.80, Estimated Creat Clear 147, Estimated GFR 120, Est GFR ( Amer) 145, Glucose 103 H, Calcium 9.8, Total Bilirubin 0.9, AST 37, ALT 35, Alkaline Phosphatase 89, Total Protein 8.0, Albumin 4.7, Globulin 3.3 H, Albumin/Globulin Ratio 1.4 04/03/24 00:02: Lipase 63 04/03/24 00:50: Lactate 1.4 I & O for Labs for Last 24 Hours: Intake & Output 03/31/24 04/01/24 04/02/24 04/03/24 11:59 11:59 11:59 11:59 Output Total 200 / 200 Balance -200 / -200 Weight 183 lb 6.4 oz Comments:: Mild subjective tenderness right lower quadrant Results Labs 04/03/24 06:10 04/02/24 23:59 Labs: Laboratory Results - last 24 hr 04/02/24 23:59: WBC 15.4 H, RBC 5.55, Hgb 16.3, Hct 49.1, MCV 88.4, MCH 29.3, MCHC 33.1, RDW 13.5, Plt Count 323, MPV 8.5, Neut % (Auto) 88.2 H, Lymph % (Auto) 5.9 L, [place] % (Auto) 4.5, Eos % (Auto) 1.0, Baso % (Auto) 0.3, Neut # (Auto) 13.6 H, Lymph # (Auto) 0.9, [place] # (Auto) 0.7, Eos # (Auto) 0.2, Baso # (Auto) 0.1, Total Counted 100, Neutrophils % (Manual) 91 H, Lymphocytes % (Manual) 4 L, Monocytes % (Manual) 2, Eosinophils % (Manual) 2, Basophils % (Manual) 1.0, Platelet Estimate Normal, RBC Morphology Normal, PT 11.1, INR 1.03, Sodium 140, Potassium 4.2, Chloride 105, Carbon Dioxide 26, Anion Gap 13.2, BUN 12, Creatinine 0.80, Estimated Creat Clear 147, Estimated GFR 120, Est GFR ( Amer) 145, Glucose 103 H, Calcium 9.8, Total Bilirubin 0.9, AST 37, ALT 35, Alkaline Phosphatase 89, Total Protein 8.0, Albumin 4.7, Globulin 3.3 H, Albumin/Globulin Ratio 1.4 04/03/24 00:02: Lipase 63 04/03/24 00:50: Lactate 1.4 Assessment and Plan *Assessment and plan (1) Acute appendicitis: Status: Acute Category: Medical Code(s): K35.80 - Unspecified acute appendicitis Plan I spent a good deal of time with the patient discussing the nature of the problem. Given the CT scan findings and presentation this is most likely appendicitis but not absolutely assured. I explained to him the nature and details of the condition and treatment options. Plan for laparoscopic possibly open appendectomy. Nature and details of the proposed procedure along with associated risks including, but not limited to, bleeding, infection, anesthetic risk, damage to adjacent structures, need for open procedure were all explained. Postoperative expectations were discussed with the patient. He understands and agrees to proceed.
[2024-04-03 06:53] LABS: Hemoglobin 14.2 g/dL (14.1-18.0)
[2024-04-03 07:06] LABS: Anion Gap 13.7 mEq/L (5-15); Blood Urea Nitrogen 13 mg/dl (9-20); Calcium 8.7 mg/dl (8.4-10.2); Carbon Dioxide 27 mmol/L (22.0-30.0); Chloride 102 mmol/L (98-107); Creatinine Clearance Estimated 193 mL/min (50-200); Estimated Glomerular Filt Rate 140 ml/min (>60); GFR (African American) 169 ML/MIN (>60); Glucose 103 mg/dl (74-100); Potassium 3.7 mmoL/L (3.5-5.1); Sodium 139 mmol/L (136-145)
--- NOTE | 2024-04-03 10:28 | PC.NURSE ---
pt leaving floor with surgery
--- NOTE | 2024-04-03 10:44 | EXP.ANES.CKL ---
[facility] Disclaimer: The information contained in this section may have been updated after the patient was seen, as this information can be updated by other users. Medical History Mesenteric adenitis Bicuspid aortic valve Surgical History H/O wisdom tooth extraction Social History Smoking Status: Never smoker alcohol intake: never substance use type: denies use current occupational status: other Travel in the last 8 weeks: None [facility] Anesthesia Checklist Patient Identification Patient Identification: Arm Band and Verbal (Name & ) Structural Data Admitted From: Home Planned Operative Procedure/s: Appendectomy Consent for Planned Operative Procedure(s) Verified: Yes Verified Documents: Surgical Consent NPO Status Verified Time NPO: 02:00 (Sip of Sprite) Chart Verification Results Verified: CBC and BMP Additional verifications Anesthesia Reactions: No Airway Assessment Mallampati Score:: Class IV C-Spine Mobility Assessed: Yes TMJ Mobility Assessed: Yes Dentition: Good Dentition Neurological Assessment Level of Consciousness: Awake Hx Seizures: No Numbness or tingling in extremities: No Anesthesia Plan Anesthesia Risk discussed: Yes Anesthesia Plan: Verified ASA Class: II Anesthesia Type: General
[2024-04-03] MEDS: ROPIVACAINE 0.5% 30ML VIAL 150 MG (12:17)
[2024-04-03] MEDS: LIDOCAINE 1% 20ML MDV 20 ML (12:17)
--- NOTE | 2024-04-03 13:01 | EXP.OP.NOTE ---
Date of procedure: 04/03/24 Pre-op Diagnosis:: Acute appendicitis Post-op Diagnosis:: Same Procedure performed:: Laparoscopic appendectomy Surgeon:: Lamont Cordoba MD DRUM DRIER OPERATOR:: Ru Corrigan Anesthesia: GETA Estimated blood loss (mL): 10 Operative findings:: He had a retroperitoneal appendix lateral to the cecum. Mid body of the appendix was quite thickened. . Operative note:: Consent was obtained patient was taken the operating room. Was given preoperative intravenous antibiotics. In the operating room he was placed in a supine position. General anesthesia was induced. Burch catheter was placed. Abdomen was prepped and draped in the standard surgical fashion. Subumbilical skin incision was made and while performing abdominal wall lift Veress needle was inserted. CO2 pneumoperitoneum was achieved to 15 mmHg. 12 mm optical trocar was inserted at the umbilicus. Intraperitoneal contents were visualized. 5 mm trocar was inserted in the suprapubic location and 5 mm trocar was inserted in the right upper abdomen. 0 degree laparoscope was replaced with the 5 mm 30 degree laparoscope. The appendix was identified at the tip of the cecum. Inspection revealed the mid body of the appendix to be rather thickened. It was lateral to the cecum in a retroperitoneal location. It was elevated. Lateral peritoneal attachments were incised. Appendix traversed well into the right lateral abdomen. Mid body of the appendix was rather thickened. The mesoappendix was carefully divided with NEFTALI ultrasonic harmonic laura with care taken to coagulate the appendiceal artery. Dissection was carried down to the appendiceal base. The appendix was divided at its base with endoscopic THUY linear cutting stapling device. Appendix was placed within an Endo Catch retrieval device removed from peritoneal cavity via the umbilical trocar site. Appendiceal staple line was inspected for hemostasis and integrity which was assured. Limited irrigation and suctioning was performed. Additional laparoscopic surveillance was carried out which revealed no other definitive alternative pathology. The terminal ileum was traced for some distance to assess for any evidence of terminal ileitis, inflammatory bowel disease, Meckel's diverticulitis of which none was noted. CO2 pneumoperitoneum was evacuated and trocars were removed. Fascia at the umbilicus was closed with a couple 0 Vicryl sutures. Local anesthetic was infiltrated. Skin incisions were closed with 4-0 Monocryl in a subcuticular fashion. Dermabond and dressings were applied. . Condition: stable Disposition: PACU Complications:: None immediately apparent .
--- NOTE | 2024-04-03 13:25 | XR_ITS ---
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 The heart size and pulmonary vascularity are within normal limits. The mediastinum is within normal limits. Bilateral pulmonary opacities are present, edema versus pneumonia. The bony thorax is intact. IMPRESSION: Bilateral pulmonary opacities, edema versus pneumonia. Reviewed, Interpreted and Dictated by Lamont Carrasquillo III, MD Transcribed by Mary Lou Banda Authenticated and [facility]
[2024-04-03] MEDS: FUROSEMIDE 100MG/10ML VIAL 100 MG IV (13:59)
[2024-04-03] MEDS: HYDROMORPHONE 2MG/ML SYRINGE 0.5 MG IV (14:00)
[2024-04-03 14:10] LABS: ABG Base Excess -1.1 mmol/L (-2.4-2.3); ABG HCO3 24.6 mmhg (22.0-26.0); ABG Oxygen Saturation 92 % (90-100); ABG PCO2 46.3 mmhg (35.0-45.0); ABG PH 7.34 mmol/L (7.35-7.45); ABG PO2 67.6 mmhg (80-100)
--- NOTE | 2024-04-03 14:10 | EXP.PULM.CON ---
History of Present Illness History of present illness: Mr. Huggins is a 24-year-old male no significant smoking history no significant respiratory complaints using any oxygen or inhalers at baseline presented to the hospital with abdominal pain status post appendectomy noted to have worsening respiratory distress in PACU with new oxygen requirements along with pink frothy sputum and pulmonary was called for further evaluation and management. [facility] Disclaimer: The information contained in this section may have been updated after the patient was seen, as this information can be updated by other users. Medical History (Updated 04/03/24 @ 14:13 by Apurva Godinez MD) Acute respiratory failure with hypoxia Mesenteric adenitis Bicuspid aortic valve Surgical History H/O wisdom tooth extraction Social History (Updated 04/03/24 @ 10:45 by Rosario Nino CRNA) Smoking Status: Never smoker alcohol intake: never substance use type: denies use current occupational status: other Travel in the last 8 weeks: None Review of Systems Constitutional Constitutional: Denies fatigue, Denies headache(s), Reports snoring and Denies weakness Eyes Eyes: Denies eye discharge, Denies dry eyes, Denies irritation and Denies itchy eyes ENT Ears, Nose, Mouth, and Throat: Denies dizziness, Denies headache(s), Denies lip swelling and Denies throat swelling *Cardiovascular Cardiovascular: Denies dyspnea and Denies dyspnea on exertion *Respiratory Respiratory: Reports chest congestion, Reports cough, Denies dyspnea, Denies dyspnea on exertion, Denies excessive phlegm production and Reports snoring *Gastrointestinal Gastrointestinal: Denies abdominal pain, Denies belching and Denies cramping *Musculoskeletal Musculoskeletal: Denies numbness and Denies tingling *Neurologic Neurologic: Denies dizziness, Denies headache(s), Denies numbness, Denies tingling and Denies weakness Psychiatric Psychiatric: Denies homicidal ideation and Denies suicidal ideation Endocrine Endocrine: Denies fatigue and Denies heat intolerance Hematologic/Lymphatic Hematologic/Lymphatic: Denies easy bleeding and Denies lymphadenopathy Allergic/Immunologic Allergic/Immunologic: Denies itchy eyes, Denies lip swelling and Denies throat swelling Pulmonology Exam Inpatient Vital signs and Labs for Last 24 Hours: Temp Pulse Resp BP Pulse Ox O2 Del Method 98.5 F 68 16 115/67 98 Room Air 04/03/24 08:00 04/03/24 08:00 04/03/24 08:00 04/03/24 08:00 04/03/24 08:00 04/03/24 09:00 Laboratory Results - last 24 hr 04/02/24 23:59: WBC 15.4 H, RBC 5.55, Hgb 16.3, Hct 49.1, MCV 88.4, MCH 29.3, MCHC 33.1, RDW 13.5, Plt Count 323, MPV 8.5, Neut % (Auto) 88.2 H, Lymph % (Auto) 5.9 L, Arroyo % (Auto) 4.5, Eos % (Auto) 1.0, Baso % (Auto) 0.3, Neut # (Auto) 13.6 H, Lymph # (Auto) 0.9, Arroyo # (Auto) 0.7, Eos # (Auto) 0.2, Baso # (Auto) 0.1, Total Counted 100, Neutrophils % (Manual) 91 H, Lymphocytes % (Manual) 4 L, Monocytes % (Manual) 2, Eosinophils % (Manual) 2, Basophils % (Manual) 1.0, Platelet Estimate Normal, RBC Morphology Normal, PT 11.1, INR 1.03, Sodium 140, Potassium 4.2, Chloride 105, Carbon Dioxide 26, Anion Gap 13.2, BUN 12, Creatinine 0.80, Estimated Creat Clear 147, Estimated GFR 120, Est GFR ( Amer) 145, Glucose 103 H, Calcium 9.8, Total Bilirubin 0.9, AST 37, ALT 35, Alkaline Phosphatase 89, Total Protein 8.0, Albumin 4.7, Globulin 3.3 H, Albumin/Globulin Ratio 1.4 04/03/24 00:02: Lipase 63 04/03/24 00:50: Lactate 1.4 04/03/24 06:10: WBC 10.4 D, RBC 4.85, Hgb 14.2 D, Hct 42.7, MCV 88.2, MCH 29.3, MCHC 33.3, RDW 13.2, Plt Count 251, MPV 8.4, Neut % (Auto) 87.4 H, Lymph % (Auto) 6.8 L, [place]royo % (Auto) 5.2, Eos % (Auto) 0.4, Baso % (Auto) 0.2, Neut # (Auto) 9.1 H, Lymph # (Auto) 0.7, Arroyo # (Auto) 0.5, Eos # (Auto) 0.0, Baso # (Auto) 0.0, Sodium 139, Potassium 3.7, Chloride 102, Carbon Dioxide 27, Anion Gap 13.7, BUN 13, Creatinine 0.70, Estimated Creat Clear 193, Estimated GFR 140, Est GFR ( Amer) 169, Glucose 103 H, Calcium 8.7 I & O for Labs for Last 24 Hours: Intake & Output 03/31/24 04/01/24 04/02/24 04/03/24 23:59 23:59 23:59 23:59 Output Total 200 / 200 Balance -200 / -200 Weight 160 lb 183 lb 6.4 oz Constitutional: Present severe distress Head: Present normocephalic and atraumatic ENT: Present normal exam, normal oropharynx and mucous membranes moist Neck: Present normal inspection and full ROM Respiratory: Present prolonged expiratory phase, respiratory distress, diminished air movement and able to speak in complete sentences; Absent wheezes or crackles Cardiac: Present S1/S2, Tachycardia and radial pulses present GI: Present soft and distention; Absent tenderness or guarding Skin: Present intact; Absent cyanosis or jaundice Neuro: Present alert, awake and oriented x 3 Extremities: Present normal inspection; Absent clubbing or cyanosis Psychiatric: Present normal affect and cooperative Meds Home Medications and Allergies Home Medications Medication Instructions Recorded Confirmed Type hydrocodone 5 mg-acetaminophen 325 1 - 2 tab PO Q6H PRN Pain #21 tabs 04/03/24 Rx mg tablet New Prescriptions to Start Prescriptions: hydrocodone-acetaminophen Lamont Cordoba Allergies Allergy/AdvReac Type Severity Reaction Status Date / Time No Known Allergies Allergy Verified 07/18/20 22:32 Results Laboratory Findings 04/03/24 06:10 04/03/24 06:10 PT/INR, D-dimer PT 11.1 seconds (10.1-12.5) 04/02/24 23:59 INR 1.03 (0.9-1.1) 04/02/24 23:59 Abnormal lab findings: Abnormal Labs 04/02/24 04/03/24 23:59 06:10 WBC 15.4 H Neut % (Auto) 88.2 H 87.4 H Lymph % (Auto) 5.9 L 6.8 L Neut # (Auto) 13.6 H 9.1 H Neutrophils % (Manual) 91 H Lymphocytes % (Manual) 4 L Glucose 103 H 103 H Globulin 3.3 H Assessment and Plan *Assessment and plan (1) Acute respiratory failure with hypoxia: Status: Acute Category: Medical Code(s): J96.01 - Acute respiratory failure with hypoxia Plan Mr. Huggins is a 24-year-old male no significant smoking history no significant respiratory complaints using any oxygen or inhalers at baseline presented to the hospital with abdominal pain status post appendectomy noted to have worsening respiratory distress in PACU with new oxygen requirements along with pink frothy sputum and pulmonary was called for further evaluation and management. Auscultation no significant wheezing. Prolonged expiratory phase. No stridor appreciated. Chest x-ray did not show any dense consolidation airspace disease, bilateral upper lobe vascular congestion noted right greater than left. Patient lethargic, slow to respond. Currently responding to verbal commands. ABG showed mildhypercarbic respiratory failure. Given improving mentation will continue to monitor. No need for NIV at this point of time. Plan: -Continue current antibiotics - Unasyn -Lasix 20 mg IV once -Continue nasal oxygen supplementation to maintain O2 saturation goal of 90 to 95%. Wean as tolerated. -F/U echocardiogram # Thank you for involving pulmonary in this patient care. Will continue to follow.
[2024-04-03 14:11] LABS: Allen's Test Acceptable; Oxygen 5L %; Source Left Radial
--- NOTE | 2024-04-03 14:13 | CA_ITS ---
APPROVED REPORT EXAM: Comprehensive 2D, Doppler, and color-flow Echocardiogram Belt Loop Cutter: Chanell Holloway RVT Ht: 5 ft 8 in Wt: 183lbs BSA: 1.97 BP: 115/67 mmHg Indications: SOA,HYPOXIA,S/P LAP APPENDECTOMY,HX BICUPSID AORTIC VALVE 2D Dimensions LA Volume 26.20 mL LA Volume Index 13.30 mL/m2 (M/F) 16-34 M-Mode Dimensions RVDd 2.86 cm (0.9-2.6) LA Diam 2.73 cm (1.9-4.0) LVDd 4.01 cm (3.5-5.7) LVDs 2.86 cm (3.5-5.7) IVSd 0.64 cm (0.6-1.1) PWd 0.57 cm (0.6-1.1) EF (Teich) 55.80% FS 28.70% EDV (Teich) 70.40 mL TAPSE 2.64 (<1.7) ESV (Teich) 31.10 mL LV Diastology E Decel Time 210 (160-240 msec) E/A Ratio 1.6 Aortic Valve LORRI Index 1.68 cm2/m2 AoV Peak Keyon. 116.0 (50-130 cm/s) AO Peak GR. 5.40 mmHg AO Mean GR. 2.80 (<5 mmHg) AO VTI 21.3 (18-25 cm) LORRI (VTI) 3.39 (2.5-4.5 cm2) Mitral Valve MV E Max Keyon. 81.0 (40-130 cm/s) MV A Velocity 50.0 (40-130 cm/s) E/A Ratio 1.61 MV PHT 62.0 ms Pulmonary Valve PV Peak Velocity 69.0 (50-150 cm/s) Tricuspid Valve TR P. Velocity 198.00 cm/s RAP Estimate 10.00 mmHg RVSP 25.70 mmHg Left Ventricle The left ventricle is normal size. The left ventricular systolic function is normal. The left ventricular ejection fraction is within the normal range. There is normal left ventricular wall thickness. There is normal LV segmental wall motion. The left ventricular diastolic function is normal. LVEF is 55%. Right Ventricle The right ventricle is normal size. The right ventricular systolic function is normal. Atria The left atrium size is normal. The right atrium size is normal. There is no Doppler evidence of interatrial shunt. Aortic Valve The aortic valve is mildly thickened, appears likely bicuspid. There is no aortic valvular stenosis. Trace aortic regurgitation. Mitral Valve The mitral valve is normal in structure. No evidence of mitral valve stenosis. Trace mitral valve regurgitation noted. Tricuspid Valve The tricuspid valve leaflets are thin and pliable. Trace tricuspid regurgitation. There is insufficient TR jet to estimate RVSP. Pulmonic Valve The pulmonary valve is normal in structure. Trace pulmonic regurgitation. Great Vessels The aortic root is normal in size. The ascending aorta is normal in size. IVC is normal in size and collapses >50% with inspiration. Pericardium There is no pericardial effusion. Other Information Study Quality: Adequate Conclusion Normal biventricular systolic size and function. Mildly thickened aortic valve, likely bicuspid. Trace AI. No . Electronically signed by : Esperanza Villarreal MD 04/05/2024 00:22:24
--- NOTE | 2024-04-03 14:32 | PC.NURSE ---
spoke with hospitalist regarding pt condition after returning from surgery. nno @ this time. pt currently sating 90% on 5lnc. temp 99.2 spitting up bloody foam. aware
--- NOTE | 2024-04-03 14:34 | SUR.PHASEI ---
1318- upon arriving into PACU, pt O2 sat was staying in upper 60's, low 70's. O2 applied, lungs auscultated at this time by joseline loredo and reported to be crackles at this time. chelle Rodriguez verbal order to get a CXR at this time. Pt started coughing copius amounts of pink-frothy sputum at 1320. Pt being suctioned by RN. 1325- radiology in at this time for CXR. 1330- chelle Crowley verbal order for us to consult pulmonology. Dr. Godinez notified of pt current status and going to return call. 1340- Hospitalist notified of the pt current status. 1350- MD Benji at bedside assessing pt. md Benji states that pt is okay to proceed to the floor, and that he will be kept inpatient overnight for observation. Dr. Godinez also at bedside at this time discussing plan of care with md Benji. Benji gave verbal order for Lasix 20mg Once now. md Farrah verbal order to obtain blood gases. Respiratory at obtaining these now. 1358- Lasix 20mg given once at this time. 1408- Sputum culture obtained.
--- NOTE | 2024-04-03 14:37 | P.PNANES_ITS ---
[facility] Anesthesia Record Part I Anesthesia Record I Intake, IV Amount: 1,400 Hydration: Adequate Estimated blood loss (mL): 20 Urine output (mL): 30 Blood Products used (#): none Blood Pressure: 148/85 SaO2: 70 Pulse Rate: 100 Airway Patency: Patent Respiratory Rate: 16 Temperature: 97.6 F Patient is:: Drowsy and Unstable Stable to PACU at:: 13:18 Comments:: Cough up frothy pink sptum, believed to be Pulmonary Edema. Conslted with hospitalixt and pulmonary. More stable after time in recovery room. Sent to floor for additonal obversation.
--- NOTE | 2024-04-03 14:43 | SUR.PHASEI ---
1414- detailed report called to joseline munoz on medsurg. Justinern notified of pt current status, and hospitalist/Annangi being consulted on the pt. 1416- pt left in stable condition with joseline munoz by joseline arzola and afoutch. VSS, dressings CDI, family at bedside. Pt transported on 3L o2 via nasal cannula. Pt remains on O2 at transfer.
[2024-04-03] MEDS: FUROSEMIDE 20 MG/2 ML VIAL IV (14:48)
[2024-04-03 15:11] LABS: Microscopic,Cath URINE MICROSCOPIC (MICROSCOPIC)
[2024-04-03 15:47] LABS: Adenovirus,PCR Not Detected (NotDetected); Bordetella Pertussis Not Detected (NotDetected); Chlamydophila Pneumoniae, PCR Not Detected (NotDetected); Coronavirus 19, PCR Not Detected (NotDetected); Coronavirus 229E Not Detected (NotDetected); Coronavirus NL63 Not Detected (NotDetected); Coronavirus OC43 Not Detected (NotDetected); Coronovirus HKU1,PCR Not Detected (NotDetected); Human Metapneumovirus Not Detected (NotDetected); Influenza A, PCR Not Detected (NotDetected); Influenza AH1, 2009 Not Detected (NotDetected); Influenza AH1, PCR Not Detected (NotDetected); Influenza AH3,PCR Not Detected (NotDetected); Influenza B, PCR Not Detected (NotDetected); Mycoplasma Pneumoniae, PCR Not Detected (NotDetected); Parainfluenza 1, PCR Not Detected (NotDetected); Parainfluenza 2, PCR Not Detected (NotDetected); Parainfluenza 3, PCR Not Detected (NotDetected); Parainfluenza 4, PCR Not Detected (NotDetected); Respiratory Syncytial Virus Not Detected (NotDetected); Rhinovirus/Enterovirus Not Detected (NotDetected)
[2024-04-03 15:58] LABS: Appearance,Urine/Cath CLEAR (Clear); Bilirubin,Cath Negative (Negative); Blood, Urine/Cath Negative (Negative); Color,Urine/Cath YELLOW (Yellow); Glucose,Urine/Cath (UA) Negative (Negative); Ketones,Urine/Cath Negative (Negative); Leukocyte Esterase,Cath Negative (Negative); Nitrate,Cath Negative (Negative); Protein,Urine/Cath Negative (Negative); Specific Gravity, Urine/Cath 1.015 (1.005-1.030); Urobilinogen,Cath 0.2 EU/dl (0.2)
--- NOTE | 2024-04-03 16:17 | PC.NURSE ---
pt is becoming more alert. currently on 4lnc and tolerating it well. continues to cough up bloody frothy sputum but it has also lessened.
[2024-04-03 16:29] LABS: WBC,Urine/Cath Occasional #/hpf (0-3)
[2024-04-03] MEDS: HYDROCODONE/APAP 5/325 MG TABLET 1 TAB PO (21:15)
--- NOTE | 2024-04-03 23:42 | PC.NURSE ---
pt ambulated in room, gavin well. no dizziness noted.
[2024-04-04] VITALS: BP 117/70; PULSE 77; RESP 17; TEMP 36.7; O2SAT 92
[2024-04-04] MEDS: LACTATED RINGERS 1000ML 1,000 ML 50 ML IV (00:56)
[2024-04-04 04:00] VITALS: BP 109/54; PULSE 74; RESP 17; TEMP 36.8; O2SAT 100; BMI 28.2
[2024-04-04] MEDS: HYDROCODONE/APAP 5/325 MG TABLET 1 TAB PO ×2 (04:44→11:07)
--- NOTE | 2024-04-04 05:32 | PC.NURSE ---
pt ambulated around room, gavin fairly.
--- NOTE | 2024-04-04 06:50 | PC.NURSE ---
pt reported watery and itching of right eye. provider made aware. meds ordered. went in to check on pt and update. pt reports burning has went away. reported burning briefly in left eye but that has went away also
[2024-04-04 07:53] VITALS: BP 117/56; PULSE 81; RESP 16; TEMP 36.8; O2SAT 95
[2024-04-04 08:00] VITALS: O2SAT 95
--- NOTE | 2024-04-04 08:14 | P.PNANES_ITS ---
[facility] Anesthesia Record Part II Anesthesia Record Part II Discharge Time: 14:15 Destination: Medical Surgical Department PACU nurse assessment reviewed?: Yes Patient Condition:: Good Anesthesia Complications:: None Swallowing reflex intact?: Yes Airway Patency: Patent Cyanosis?: No Blood Pressure: 117/73 SaO2: 95 Respiratory Rate: 20 Pulse Rate: 91 Temperature: 97.9 F Mental Status: Alert & Oriented Pain level:: 3 Nausea and/or vomitting:: None Intake, IV Amount: 0 Hydration: Adequate Comments:: pt's 02 saturation dropped when arriving to PACU. 02 saturations increased but pt was coughing up pink, frothy sputum. Pulmonology was consulted and Hosp italist made aware of situation. Today, O2 saturations are in the upper 90's with minimal oxygen requirements.
[2024-04-04 08:17] VITALS: BP 117/73; PULSE 91; RESP 20; TEMP 36.6; O2SAT 95
--- NOTE | 2024-04-04 09:17 | P.PN_ITS ---
Subjective Narrative: Patient underwent uneventful laparoscopic appendectomy yesterday. Postoperatively in the PACU he had diminished oxygen saturations called productive of pink frothy sputum. Hospitalist physician and pulmonary team involved. This morning he is on very minimal oxygen requirements (1L) per Nasal cannula with appropriate saturations. Describes abdominal soreness from the surgery and coughing and states that mobility has been limited as he is afraid he would tear something . He has ambulated to the bathroom. He has been passing gas when out of bed. He has multiple questions which have been answered to the best of my ability. Exam Data for Last 24 hours Vital signs and Labs for Last 24 Hours: Temp Pulse Resp BP Pulse Ox O2 Del Method O2 Flow Rate 98.3 F 81 20 117/56 L 95 Nasal Cannula 1 04/04/24 07:53 04/04/24 07:53 04/04/24 08:17 04/04/24 07:53 04/04/24 08:00 04/04/24 08:48 04/04/24 08:48 Laboratory Results - last 24 hr 04/03/24 14:08: Specimen Source Left radial, O2 % 5l, ABG pH 7.34 L, ABG pCO2 46.3 H, ABG pO2 67.6 L, ABG HCO3 24.6, ABG Total CO2 26.0, ABG O2 Saturation 92, ABG Base Excess -1.1, Anup Test Acceptable 04/03/24 15:06: Urine Color Yellow, Urine Appearance Clear, Urine pH 8.0, Ur Specific [place] 1.015, Urine Protein Negative, Urine Glucose (UA) Negative, Urine Ketones Negative, Urine Blood Negative, Urine Nitrate Negative, Urine Bilirubin Negative, Urine Urobilinogen 0.2, Ur Leukocyte Esterase Negative, Urine RBC None, Urine WBC Occasional, Ur Squamous Epith Cells None, Urine Bacteria None 04/03/24 15:40: Chlamy pneumoniae PCR Not detected, Adenovirus (PCR) Not detected, B. pertussis DNA (PCR) Not detected, Coronavirus OC43 (PCR) Not detected, Coronavirus HKU1 (PCR) Not detected, Coronavirus 229E (PCR) Not detected, SARS-CoV-2 (PCR) Not detected, Coronavirus NL63 (PCR) Not detected, Human Metapneumovir PCR Not detected, Influenza A (H1) PCR Not detected, Influ A (H1N1/09) PCR Not detected, Influenza A (H3) PCR Not detected, Influenza Type A (PCR) Not detected, Influenza Type B (PCR) Not detected, M. pneumoniae (PCR) Not detected, Parainfluenza 1 (PCR) Not detected, Parainfluenza 2 (PCR) Not detected, Parainfluenza 3 (PCR) Not detected, Parainfluenza 4 (PCR) Not de tected, RSV (PCR) Not detected, Entero/Rhino (PCR) Not detected I & O for Last 24 hours: Intake & Output 04/01/24 04/02/24 04/03/24 04/04/24 11:59 11:59 11:59 11:59 Intake Total 3280 / 3280 Output Total 200 / 200 2950 / 2950 Balance -200 / -200 330 / 330 Weight 183 lb 6.4 oz 186 lb 6.4 oz Microbiology Reports for the Last 24 Hours: Microbiology 04/03/24 14:06 Sputum - Expectorated Sputum Gram Stain - Final *Routine Abdominal Exam Abdominal: Present soft Comments: Mild incisional. Laparoscopic dressings in place. Progress Note: A&P Assessment and plan (1) Acute respiratory failure with hypoxia: Status: Acute Assessment and Plan Assessment and Plan for All Diagnoses:: Patient doing well from a surgical standpoint after eventful laparoscopic appendectomy. Post-operatively he developed respiratory issues characterized by decreased oxygen saturations and cough productive of pink frothy sputum. Continue ongoing management per medical hospitalist team and pulmonary medicine. Increase his ambulation evaluation as soon as he is medically ready.
--- NOTE | 2024-04-04 11:35 | P.PN_ITS ---
Subjective *Date: 04/04/24 *Time: 12:06 Interval history: No acute respiratory events overnight. Patient not in room air. Admits improving respiratory symptoms. Pulmonology Exam Inpatient Vital signs and Labs for Last 24 Hours: Temp Pulse Resp BP Pulse Ox O2 Del Method O2 Flow Rate 98.3 F 81 20 117/56 L 95 Room Air 1 04/04/24 07:53 04/04/24 07:53 04/04/24 08:17 04/04/24 07:53 04/04/24 08:00 04/04/24 10:44 04/04/24 08:48 Laboratory Results - last 24 hr 04/03/24 14:08: Specimen Source Left radial, O2 % 5l, ABG pH 7.34 L, ABG pCO2 46.3 H, ABG pO2 67.6 L, ABG HCO3 24.6, ABG Total CO2 26.0, ABG O2 Saturation 92, ABG Base Excess -1.1, Anup Test Acceptable 04/03/24 15:06: Urine Color Yellow, Urine Appearance Clear, Urine pH 8.0, Ur Specific [place] 1.015, Urine Protein Negative, Urine Glucose (UA) Negative, Urine Ketones Negative, Urine Blood Negative, Urine Nitrate Negative, Urine Bilirubin Negative, Urine Urobilinogen 0.2, Ur Leukocyte Esterase Negative, Urine RBC None, Urine WBC Occasional, Ur Squamous Epith Cells None, Urine B acteria None 04/03/24 15:40: Chlamy pneumoniae PCR Not detected, Adenovirus (PCR) Not detected, B. pertussis DNA (PCR) Not detected, Coronavirus OC43 (PCR) Not detected, Coronavirus HKU1 (PCR) Not detected, Coronavirus 229E (PCR) Not detected, SARS-CoV-2 (PCR) Not detected, Coronavirus NL63 (PCR) Not detected, Human Metapneumovir PCR Not detected, Influenza A (H1) PCR Not detected, Influ A (H1N1/09) PCR Not detected, Influenza A (H3) PCR Not detected, Influenza Type A (PCR) Not detected, Influenza Type B (PCR) Not detected, M. pneumoniae (PCR) Not detected, Parainfluenza 1 (PCR) Not detected, Parainfluenza 2 (PCR) Not detected, Parainfluenza 3 (PCR) Not detected, Parainfluenza 4 (PCR) Not detected, RSV (PCR) Not detected, Entero/Rhino (PCR) Not detected Temp Pulse Resp BP Pulse Ox O2 Del Method 98.5 F 68 16 115/67 98 Room Air 04/03/24 08:00 04/03/24 08:00 04/03/24 08:00 04/03/24 08:00 04/03/24 08:00 04/03/24 09:00 Laboratory Results - last 24 hr 04/02/24 23:59: WBC 15.4 H, RBC 5.55, Hgb 16.3, Hct 49.1, MCV 88.4, MCH 29.3, MCHC 33.1, RDW 13.5, Plt Count 323, MPV 8.5, Neut % (Auto) 88.2 H, Lymph % (Auto) 5.9 L, Creek % (Auto) 4.5, Eos % (Auto) 1.0, Baso % (Auto) 0.3, Neut # (Auto) 13.6 H, Lymph # (Auto) 0.9, Creek # (Auto) 0.7, Eos # (Auto) 0.2, Baso # (Auto) 0.1, Total Counted 100, Neutrophils % (Manual) 91 H, Lymphocytes % (Manual) 4 L, Monocytes % (Manual) 2, Eosinophils % (Manual) 2, Basophils % (Manual) 1.0, Platelet Estimate Normal, RBC Morphology Normal, PT 11.1, INR 1.03, Sodium 140, Potassium 4.2, Chloride 105, Carbon Dioxide 26, Anion Gap 13.2, BUN 12, Creatinine 0.80, Estimated Creat Clear 147, Estimated GFR 120, Est GFR ( Amer) 145, Glucose 103 H, Calcium 9.8, Total Bilirubin 0.9, AST 37, ALT 35, Alkaline Phosphatase 89, Total Protein 8.0, Albumin 4.7, Globulin 3.3 H, Albumin/Globulin Ratio 1.4 04/03/24 00:02: Lipase 63 04/03/24 00:50: Lactate 1.4 04/03/24 06:10: WBC 10.4 D, RBC 4.85, Hgb 14.2 D, Hct 42.7, MCV 88.2, MCH 29.3, MCHC 33.3, RDW 13.2, Plt Count 251, MPV 8.4, Neut % (Auto) 87.4 H, Lymph % (Auto) 6.8 L, Creek % (Auto) 5.2, Eos % (Auto) 0.4, Baso % (Auto) 0.2, Neut # (Auto) 9.1 H, Lymph # (Auto) 0.7, Creek # (Auto) 0.5, Eos # (Auto) 0.0, Baso # (Auto) 0.0, Sodium 139, Potassium 3.7, Chloride 102, Carbon Dioxide 27, Anion Gap 13.7, BUN 13, Creatinine 0.70, Estimated Creat Clear 193, Estimated GFR 140, Est GFR ( Amer) 169, Glucose 103 H, Calcium 8.7 I & O for Labs for Last 24 Hours: Intake & Output 04/01/24 04/02/24 04/03/24 04/04/24 23:59 23:59 23:59 23:59 Intake Total 3040 / 3040 360 / 360 Output Total 3150 / 3150 0 / 0 Balance -110 / -110 360 / 360 Weight 160 lb 183 lb 6.4 oz 186 lb 6.4 oz Intake & Output 03/31/24 04/01/24 04/02/24 04/03/24 23:59 23:59 23:59 23:59 Output Total 200 / 200 Balance -200 / -200 Weight 160 lb 183 lb 6.4 oz Microbiology Reports for the Last 24 Hours: Microbiology 04/03/24 14:06 Sputum - Expectorated Sputum Gram Stain - Final Constitutional: Present severe distress Head: Present normocephalic and atraumatic ENT: Present normal exam, normal oropharynx and mucous membranes moist Neck: Present normal inspection and full ROM Respiratory: Present CTA bilaterally, normal respiratory effort and able to speak in complete sentences; Absent prolonged expiratory phase, respiratory distress, wheezes, crackles or diminished air movement Cardiac: Present S1/S2, Tachycardia and radial pulses present GI: Present soft and distention; Absent tenderness or guarding Skin: Present intact; Absent cyanosis or jaundice Neuro: Present alert, awake and oriented x 3 Extremities: Present normal inspection; Absent clubbing or cyanosis Psychiatric: Present normal affect and cooperative Assessment and Plan *Assessment and plan (1) Acute respiratory failure with hypoxia: Status: Acute Category: Medical Code(s): J96.01 - Acute respiratory failure with hypoxia Plan Mr. Huggins is a 24-year-old male no significant smoking history no significant respiratory complaints using any oxygen or inhalers at baseline presented to the hospital with abdominal pain status post appendectomy noted to have worsening respiratory distress in PACU with new oxygen requirements along with pink frothy sputum and pulmonary was called for further evaluation and management. Auscultation no significant wheezing. Prolonged expiratory phase. No stridor appreciated. Chest x-ray did not show any dense consolidation airspace disease, bilateral upper lobe vascular congestion noted right greater than left. Patient lethargic, slow to respond. Currently responding to verbal commands. ABG showed mildhypercarbic respiratory failure. Given improving mentation will continue to monitor. No need for NIV at this point of time. Interval update: No acute respiratory events overnight. On examination today bilateral clear breath sounds. On room air saturating 94%. Patient denies any further episodes of cough/productive phlegm. Plan: -Complete a total of 3-day course of antibiotics from pulmonary standpoint. Day 2 of 3. Can be discharged home on Augmentin to complete a total of 3-day course. -F/U echocardiogram final report. Recommend following with cardiology. # Thank you for involving pulmonary in this patient care. Will follow the patient in pulmonary clinic in 2 to 3 weeks post discharge.
[2024-04-04 11:54] VITALS: BP 117/67; PULSE 76; RESP 16; TEMP 36.7; O2SAT 94
--- NOTE | 2024-04-04 12:32 | EXP.DC.SUM ---
General Admission date:: 04/03/24 Discharge date: 04/04/24 HPI HPI HPI: This is a 24-year-old male with no significant past medical history who presents to the emergency department with abdominal pain, nausea and vomiting. Symptoms began with abdominal bloating on 04/01/2024. This was followed by nausea. He reports body aches and chills as well as pain right in the middle of his abdomen. After vomiting he had some improvement in his symptoms. He did develop some pain. Patient states the pain started in the middle of his abdomen and then radiated to his right lower side, also had associated bloating. Denies any abdominal history. Denies any prior surgeries. Emergency department workup revealed leukocytosis with left shift. CT scan notable for distended fluid-filled appendix with stool and small appendicoliths consistent with early noncomplicated appendicitis. Laboratory evaluation unremarkable. He is admitted to hospital service for further evaluation management. Patient states that he did have similar symptoms several weeks ago which were self-limited but persisted for about 4 days. Hospital Course Hospital Course Hospital Course: This is a 24-year-old male with no significant past medical history who presents to the emergency department with abdominal pain, nausea and vomiting. He reports body aches and chills as well as pain right in the middle of his abdomen. He states pain was better than it was earlier but still feels not well. Patient states the pain started in the middle of his abdomen and then radiated to his right lower side, also had associated bloating. Denies any abdominal history. Denies any prior surgeries. patient was diagnosed with appendicitis, was operated on for laparoscopic appendectomy, patient became hypoxic in the PACU post procedure likely due to opulmonary edema vs aspiration, started on him augmentin at DC and f/u with cardiology as OP given to f/u on echo, history of AVR. Patient and mom in room agree with DC plan and I answered all their questions, patient will be discharged in stable condition Exam Data for Last 24 hours Vital signs and Labs for Last 24 Hours: Temp Pulse Resp BP Pulse Ox O2 Del Method O2 Flow Rate 98.1 F 76 16 117/67 94 L Room Air 1 04/04/24 11:54 04/04/24 11:54 04/04/24 11:54 04/04/24 11:54 04/04/24 11:54 04/04/24 10:44 04/04/24 08:48 Laboratory Results - last 24 hr 04/03/24 14:08: Specimen Source Left radial, O2 % 5l, ABG pH 7.34 L, ABG pCO2 46.3 H, ABG pO2 67.6 L, ABG HCO3 24.6, ABG Total CO2 26.0, ABG O2 Saturation 92, ABG Base Excess -1.1, Anup Test Acceptable 04/03/24 15:06: Urine Color Yellow, Urine Appearance Clear, Urine pH 8.0, Ur Specific [address] 1.015, Urine Protein Negative, Urine Glucose (UA) Negative, Urine Ketones Negative, Urine Blood Negative, Urine Nitrate Negative, Urine Bilirubin Negative, Urine Urobilinogen 0.2, Ur Leukocyte Esterase Negative, Urine RBC None, Urine WBC Occasional, Ur Squamous Epith Cells None, Urine Bacteria None 04/03/24 15:40: Chlamy pneumoniae PCR Not detected, Adenovirus (PCR) Not detected, B. pertussis DNA (PCR) Not detected, Coronavirus OC43 (PCR) Not detected, Coronavirus HKU1 (PCR) Not detected, Coronavirus 229E (PCR) Not detected, SARS-CoV-2 (PCR) Not detected, Coronavirus NL63 (PCR) Not detected, Human Metapneumovir PCR Not detected, Influenza A (H1) PCR Not detected, Influ A (H1N1/09) PCR Not detected, Influenza A (H3) PCR Not detected, Influenza Type A (PCR) Not detected, Influenza Type B (PCR) Not detected, M. pneumoniae (PCR) Not detected, Parainfluenza 1 (PCR) Not detected, Parainfluenza 2 (PCR) Not detected, Parainfluenza 3 (PCR) Not detected, Parainfluenza 4 (PCR) Not detected, RSV (PCR) Not detected, Entero/Rhino (PCR) Not detected I & O for Last 24 hours: Intake & Output 04/01/24 04/02/24 04/03/24 04/04/24 23:59 23:59 23:59 23:59 Intake Total 3040 / 3040 360 / 360 Output Total 3150 / 3150 0 / 0 Balance -110 / -110 360 / 360 Weight 72.575 kg 83.189 kg 84.55 kg Microbiology Reports for the Last 24 Hours: Microbiology 04/03/24 14:06 Sputum - Expectorated Sputum Gram Stain - Final Constitutional Constitutional: no acute distress *Routine HEENT Exam Head: Present normocephalic Eye: Present EOMI and PERRL ENT: Present mucous membranes moist *Routine Neck Exam Neck: Present supple; Absent lymphadenopathy *Routine Respiratory Exam Respiratory: Present CTA bilaterally *Routine Cardiovascular Exam Cardiovascular: Present RRR *Routine Abdominal Exam Abdominal: Present soft and normoactive bowel sounds; Absent tenderness *Routine Extremities Exam Extremities: Absent cyanosis, clubbing or edema *Routine Skin Exam Skin: Present warm; Absent rash *Routine Neurological Exam Neurological: Present alert and oriented X3 Results Data Completed and Pending Labs on day of discharge: Labs from last 24 hours 04/03/24 04/03/24 04/03/24 15:40 15:06 14:08 Specimen Source Left radial O2 % 5l ABG pH 7.34 L ABG pCO2 46.3 H ABG pO2 67.6 L ABG HCO3 24.6 ABG Total CO2 26.0 ABG O2 Saturation 92 ABG Base Excess -1.1 Anup Test Acceptable Urine Color Yellow Urine Appearance Clear Urine pH 8.[address] 1.015 Urine Protein Negative Urine Glucose (UA) Negative Urine Ketones Negative Urine Blood Negative Urine Nitrate Negative Urine Bilirubin Negative Urine Urobilinogen 0.2 Ur Leukocyte Esterase Negative Urine RBC None Urine WBC Occasional Ur Squamous Epith Cells None Urine Bacteria None Chlamy pneumoniae PCR Not detected Adenovirus (PCR) Not detected B. pertussis DNA (PCR) Not detected Coronavirus OC43 (PCR) Not detected Coronavirus HKU1 (PCR) Not detected Coronavirus 229E (PCR) Not detected SARS-CoV-2 (PCR) Not detected Coronavirus NL63 (PCR) Not detected Human Metapneumovir PCR Not detected Influenza A (H1) PCR Not detected Influ A (H1N1/09) PCR Not detected Influenza A (H3) PCR Not detected Influenza Type A (PCR) Not detected Influenza Type B (PCR) Not detected M. pneumoniae (PCR) Not detected Parainfluenza 1 (PCR) Not detected Parainfluenza 2 (PCR) Not detected Parainfluenza 3 (PCR) Not detected Parainfluenza 4 (PCR) Not detected RSV (PCR) Not detected Entero/Rhino (PCR) Not detected DS: Diagnosis Discharge Diagnosis (1) Acute respiratory failure with hypoxia: Status: Acute Code(s): J96.01 - Acute respiratory failure with hypoxia Meds Home Medications and Allergies Home Medications Medication Instructions Recorded Confirmed Type hydrocodone 5 mg-acetaminophen 325 1 - 2 tab PO Q6H PRN Pain #21 tabs 04/03/24 Rx mg tablet amoxicillin 500 mg-potassium 1 tab PO Q12H 5 days #10 tabs 04/04/24 Rx clavulanate 125 mg tablet (Augmentin) New Prescriptions to Start Prescriptions: amoxicillin-pot clavulanate [Augmentin] Salome Leblanc hydrocodone-acetaminophen Lamont Cordoba Allergies Allergy/AdvReac Type Severity Reaction Status Date / Time No Known Allergies Allergy Verified 07/18/20 22:32 Discharge Plan Disposition Patient Disposition: Home, Self-Care Condition: Good Follow up Plan Follow up with: Lamont Cordoba MD [Staff Physician] - 04/19/24 Rex Villarreal MD [Staff Physician] - 2 weeks Prescriptions/Medication Reconciliation: New hydrocodone-acetaminophen 5-325 mg Tablet 1 - 2 tab PO Q6H PRN (Reason: Pain) Qty: 21 0RF amoxicillin-pot clavulanate [Augmentin] 500-125 mg tablet 1 tab PO Q12H 5 Days Qty: 10 0RF Problem Reconciliation Problems Reviewed?: Yes Patient Discharge Instructions ACTIVITY: Ambulate as tolerated DIET: continue same diet Patient Instructions: DI for Appendicitis -- Adult, DI for Surgical Site Infection Providers Primary Care Provider: Sharda Elias Admit Provider: Ru Bush Attending Provider: uR Bush
--- NOTE | 2024-04-06 11:54 | CARE MANAGER ---
Contacted patient related to hospital discharge. He states he is doing well. He has medication and is aware of follow up appointments. BRADLEY Pinon
== END 2024-04-04 13:57 | disposition home or self-care (01) ==
LOC: ER 23:52 → 2ND 04-03 02:24
PROVIDERS: Nurse Practitioner Acute Care; Surgery; Admitting Provider Internal Medicine Adolescent Medicine; Emergency Provider Emergency Medicine; PCP Nurse Practitioner Family; Visit Provider Internal Medicine Adolescent Medicine
PROC: 0DTJ4ZZ Resection of Appendix, Percutaneous Endoscopic Approach (ICD-10-PCS; CPT 44970; principal; 2024-04-03 12:00)
DX: K35.890 Other acute appendicitis without perforation or gangrene (principal); J95.821 Acute postprocedural respiratory failure
CPT/HCPCS: 44970; 36415; 71045; 74177; 80048; 80053; 81001; 82803; 83605; 83690; 85007; 85025; 85610; 87070; 87205; 87581; 87632; 87635; 87798; 93306; 99285; G0378; J2405; Q9967

== ENCOUNTER 2025-07-03 12:12 | Outpatient (CLI) | payer BC, SELFPAY ==
[2025-07-03 20:07] LABS: Coronavirus 19, PCR Not Detected (NotDetected); Influenza A, PCR Not Detected (NotDetected); Influenza B, PCR Not Detected (NotDetected)
--- OUTSIDE RECORDS SUMMARY | 2025-07-05 12:14 | XMS_ITS | Clinical Summary ---
Author Organization [facility] Address [address] [place] [address] Care Team Providers Care Intelligence Intern Name Role Phone Walker Farah M.D. Primary Care Provider [phone] Source Comments [facility] is fully rolled out with thefollowing exceptions:General Clinical Research [facility] Allergies No known active allergies Medications No known medications Social History Tobacco Use Types Packs/Day Years Used Date Smoking Tobacco: Never Assessed Sex and Gender Information Value Date Recorded Sex Assigned at Not on file Legal Sex Male 5:37 AM EST Gender Identity Not on file Sexual Orientation Not on file Plan of Treatment Health Maintenance Due Date Last Done Comments MMR IMMUNIZATION (1 of 1 - S tandard series) 2002 DTAP/Tdap/Td IMMUNIZATION (1 - Tdap) 2008 VARICELLA IMMUNIZATION (1 of 2 - 13+ 2-dose series) 2014 HPV IMMUNIZATION (1 - Male 3 -dose series) 2016 HEPATITIS B IMMUNIZATION (1 of 3 - 19+ 3-dose series) 2020 COVID-19 Vaccine ( - 2023-2 5 season) 2024 AMB SEASONAL FLU VACCINE (#1) 09/21/2025 HIB IMMUNIZATION Aged Out No longer e ligible based on patient's age to complete this topic IPV IMMUNIZATION Aged Out No longer e ligible based on patient's age to complete this topic MCV4 IMMUNIZATION Aged Out No longer eligible based on patient's age to complete this topic MENINGOCOCCAL B VACCINE Aged Out No l onger eligible based on patient's age to complete this topic PNEUMOCOCCAL IMMUNIZATION Aged Out No longer eligible based on patient's age to complete this topic Respiratory Syncytial Virus (RSV) <20mo Aged Out No longer eligible b ased on patient's age to complete this topic Insurance [facility] Address: [facility] [id number] [place] [address] Care Teams Intelligence Intern Relationship Specialty Start Date End Date Walker Farah M.D. [address] [place] [address] PCP - General External Family Practice 01/26/18
--- OUTSIDE RECORDS SUMMARY | 2025-07-05 12:14 | XMS_ITS | Clinical Summary ---
Author Organization Healthcare Address [address] [place] [address] Care Team Providers Care Nanofabrication Specialist Name Role Phone EliasJenifer rajanpablo Amador SENIOR MAINFRAME PROGRAMMER ANALYST Primary Care Provider [phone] Ev Tucker RN Unavailable Unavailable Torin Ramirez MD Unavailable Elder Russell MD Unavailable [phone] Daniela Jordan APRN Unavailable [phone] Monalisa Issa RN Unavailable Unavailable Allergies No known active allergies Medications No known medications Active Problems Problem Noted Date Diagnosed Date Bicuspid aortic valve 02/09/2019 Family History Medical History Relation Name Comments Conversions - Other Mother No known health problems Relation Name Status Comments Mother Social History Tobacco Use Types Packs/Day Years Used Date Smoking Tobacco: Never Smokeless Tobacco: Never Tobacco Cessation:Counseling Given: No Sex and Gender Information Value Date Recorded Sex Assigned at Not on file Legal Sex Male 7:12 PM EDT Gender Identity Not on file Sexual Orientation Not on file Last Filed Vital Signs Vital Sign Reading Time Taken Comments Blood Pressure 153/92 04/27/2024 11:27 PM EDT Pulse 96 04/27/2024 11:27 PM EDT Temperature 36.8 C (98.3 F) 04/27/2024 11:27 PM EDT Respiratory Rate 15 04/27/2024 11:27 PM EDT Oxygen Saturation 95% 04/27/2024 11:27 PM EDT Inhaled Oxygen Concentration - - Weight 89.9 kg (198 lb 3.1 oz) 04/27/2024 4:44 P M EDT Height 171.2 cm (5' 7.4 ) 05/16/2020 1:48 PM EDT Body Mass Index 30.67 05/16/2020 1:48 PM EDT Plan of Treatment Health Maintenance Due Date Last Done Comments [facility]-Depression Screening 2001 [facility]-Infant/Child/Adol SDOH Screenings 2001 [facility]-Obesity Intervention 2007 HPV Vaccines (1 - Male 3-dose series) 2016 [facility]- SDOH Screenings 2019 [facility]-Adult SDOH Screenings 2019 [id number] Vaccine (1 - season) 2024 [facility]-Influenza Vaccine (#1) 2025 [facility]-DTaP,Tdap,and Td Vaccines (8 - Td or Tdap) 10/06/2033 10/06/2023, 04/06/2012, 05/28/2005, Additional history exists [facility]-Zoster Vaccines (1 of 2) 2051 04/06/2012, 05/16/2009, 07/06/2002 [facility]-Hepatitis B Vaccines Completed 001, 2001, 2001, Additional history exists [facility]-HIB Vaccines Completed 10/05/2002, , 2001, Additional history exists [facility]-Varicella Vaccines Completed 2, 05/16/2009, 07/06/2002 [facility]-IPV Vaccines Completed 06/16/2018, , 10/05/2002, Additional history exists [facility]-Hepatitis A Vaccines Completed 02/27/2019, 05/22 [facility]-HIV Screening Completed 04/27/2024 [facility]-Hepatitis C Screening Completed 04/27/2024 [facility]-Pneumococcal Vaccine: Pediatrics (0 to 5 Years) and At-Risk Patients (6 to 49 Years) Aged Out No longer eligible based on patient's age to complete this topic [facility]-Rotavirus Vaccines Aged Out No lo nger eligible based on patient's age to complete this topic Procedures Procedure Name Priority Date/Time Associated Diagnosis Comments HEPATITIS C ANTIBODY - ED W/REFLEX TO HCV QUANT PCR STAT 04/27/2024 7:16 PM EDT ED HIV 1/2 ANTIBODY/ANTIGEN SCREEN WITH REFLEX TO HIV I/II DIFFERENTIATION STAT 04/27/2024 7:16 PM EDT from Last 3 Months or Most Recently Relevant to Health Maintenance Results * ED HIV 1/2 Antibody/Antigen Screen w/Reflex to HIV 1/2 Differentiation (04/27/2024 7:16 PM EDT) HIV 1 & 2 Antibody/Antigen Screen Non Reactive Non Reactive 04/27/2024 8:24 PM EDT [facility] Comment:Screening for HIV 1 & 2 antibodies, and P24 antigen is NONREACTIVE. No confirmatory testing is required. Blood Venous blood specimen / Unknown Venipuncture / Unknown 04/27/2024 7:16 PM EDT 04/27/2024 7:43 PM EDT Xi Ramesh MD LAB BLOOD ORDERABLES Final Re sult Performing Organization Address City/[facility] Co de Phone Number [facility] [address] [place] [address] * Hepatitis C Antibody - ED (04/27/2024 7:16 PM EDT) Hepatitis C Antibody Negative Negative 04/27/2024 8:25 PM EDT [facility] Blood Venous blood specimen / Unknown Venipuncture / Unknown 04/27/2024 7:16 PM EDT 04/27/2024 7:43 PM EDT Xi Ramesh MD LAB BLOOD ORDERABLES Final Re sult Performing Organization Address City/State/[facility] Co de Phone Number [facility] [address] [place] [address] from Last 3 Months or Most Recently Relevant to Health Maintenance Insurance [facility] Member Subscriber Plan / Payer (Ef fective 2019-Present) Name:ANDREA JOEL Relation to Subscriber:Child Name:APPLE CALDERA Date of :2001 (Home) Address: [address] [place] [address] Payer ID:[id number] (NAIC) Type:Not on file Address: [address] Care Teams Nanofabrication Specialist Relationship Specialty Start Date End Date Sharda Elias APRN [address] [place] [address] PCP - General 04/03/21 Ev Tucker RN [facility] Registered Nurse 02/01/23 Torin Ramirez MD [address] [place] [address] Consulting Physician Pediatric Cardiology 02/01/23 Elder Russell MD [address] [place] [address] Consulting Physician Cardiology 02/01/23 Daniela Jordan APRN [address] [place] [address] Nurse Practitioner Internal Medicine 02/01/23 Monalisa Issa RN [facility] Registered Nurse Cardiology 02/01/23
--- OUTSIDE RECORDS SUMMARY | 2025-07-05 12:14 | XMS_ITS | Encounter Summary ---
Author Organization [facility] Address [address] [place] [address] Care Team Providers Care Sas Architect Name Role Phone Sharda Elias Perry TUFTER HAND Primary Care Provider [phone] Ev Tucker RN Unavailable Unavailable Torin Ramirez MD Unavailable Elder Russell MD Unavailable [phone] Daniela Jordan TUFTER HAND Unavailable [phone] Monalisa Issa RN Unavailable Unavailable Reason for Referral * Imaging (Routine) - Closed Specialty Diagnoses / Procedures Referred By Contac t Referred To Contact Cardiology Diagnoses Bicuspid aortic valve Procedures Echo , Adult Congenital Transthoracic (TTE) Complete Elder Russell MD [address] [place] [address] Phone: tel: fax: Referral ID Status Reason Start Date Expiration Date V isits Requested Visits Authorized [id number] Closed Perform Procedure 04/15/2021 10/12/2021 1 1 Encounter Details Date Type Department Care Team (Late st Contact Info) Description 04/15/2021 Orders Only [facility] [place] [address] [facility]. [address] [place] [address] Mariajose [place] [facility] [address] [place] [address] Bicuspid aortic valve (Primary Dx) Social History Tobacco Use Types Packs/Day Years Used Date Smoking Tobacco: Never Sex and Gender Information Value Date Recorded Sex Assigned at Not on file Legal Sex Male 7:12 PM EDT Gender Identity Not on file Sexual Orientation Not on file documented as of this encounter Plan of Treatment Not on file documented as of this encounter Results * ECHO, ADULT CONGENITAL TRANSTHORACIC COMPLETE (07/10/2021 1:41 PM EDT) PA acc time 140 msec BETZY ISCV PA WA(ACCEL) 15.6 mmHg BETZY ISCV PA acc slope 539.7 cm/s2 BETZY ISCV BSA 1.9 m2 BETZY ISCV LVIDd 46 mm BETZY ISCV IVSd 9 mm BETZY ISCV LVPWd 8 mm BETZY ISCV LV MASS(C)D 122 g BETZY ISCV LVIDs 33 mm BETZY ISCV LA dimension 22 mm BETZY ISCV Ao Root Diam 34 mm BETZY ISCV LVOT diam 23 mm BETZY ISCV LAV(MOD-4ch) 21 mL BETZY ISCV MV E Vmax 93.8 cm/s BETZY ISCV MV A Vmax 48.9 cm/s BETZY ISCV TAPSE 24 mm BETZY ISCV RV s' [place] 12.1 cm/s BETZY ISCV LAV(MOD-2ch) 29 mL BETZY ISCV LV V1 VTI 15.1 cm BETZY ISCV LV V1 Vmax 83.9 cm/s BETZY ISCV LV mean PG 1.5 mmHG BETZY ISCV LV V1 mean 58.0 cm/sec BETZY ISCV LV max PG 2.8 mmHg BETZY ISCV Ao V2 VTI 17.7 cm BETZY ISCV Ao mean PG 2 mmHg BETZY ISCV Ao V2 Vmax 100.8 cm/s BETZY ISCV Ao max PG 4 mmHg BETZY ISCV Ao V2 mean 72.0 cm/s BETZY ISCV LV EDV(MOD-4ch) 84 mL BETZY ISCV LV ESV(MOD4ch) 42 mL BETZY ISCV LV RWT 0.37 mm BETZY ISCV EF(MOD-sp4) 50 % BETZY ISCV MV E/A 1.9 cm/s BETZY ISCV mean PAP 16 mmHg BETZY ISCV AV VTI Index 0.85 BETZY ISCV Anatomical Region Laterality Modality Echocardiography Narrative 07/10/2021 4:12 PM EDT Left Ventricle The left ventricle is normal size. There is normal left ventricular myocardial thickness and mass. No intracardiac mass or thrombus is seen. The left ventricular systolic function is normal.The LVEF is visually estimated at 50 - 55%. The left ventricular wall motion is normal. Right Ventricle Right ventricle size is normal. The right ventricular systolic function is normal. The estimated global right ventricular systolic function based upon the tricuspid annular plane of systolic excursion (TAPSE) is normal (>=17 mm). The estimated global right ventricular systolic function based upon the TDI maximal systolic velocity is normal (>=9.5 cm/s). Unable to estimate RVSP due to inadequate TR signal. Although the spectral Doppler envelope of TR was not adequate for calculating the PAP, the estimated PAP based upon other 2D and Doppler features suggests that the PAP is probably normal or at most mildly elevated. Left Atrium The left atrium volume index is small (<16 mL/m2). Right Atrium The right atrium is dilated by visual assessment. IVC/SVC Based on the IVC size and respiratory variation, the estimated right atrial pressure is 3mmHg. Mitral Valve The mitral valve is normal in appearance with no evidence of mitral valve prolapse. There is trace mitral regurgitation. There is no mitral stenosis. Tricuspid Valve The tricuspid valve is normal in appearance. There is trace tricuspid regurgitation. There is no tricuspid stenosis. Aortic Valve The aortic valve is bicuspid. There is no valvular regurgitation. There is no hemodynamically significant valvular aortic stenosis. The mean gradient is 2 mmHg. The peak gradient is 4 mmHg. Pulmonic Valve The pulmonic valve is grossly normal. There is trace pulmonic regurgitation. There is no pulmonic stenosis. Pericardium No pericardial effusion. Great Vessels The aortic root is normal in size. Study Details A complete echocardiogram using two-dimensional (2D) and m-mode imaging with color and spectral flow Doppler was performed. us Elder Russell MD CV ECHO PROCEDURES Final R esult documented in this encounter Visit Diagnoses Diagnosis Bicuspid aortic valve- Primary Congenital insufficiency of aortic valve Bicuspid aortic valve Congenital insufficiency of aortic valve documented in this encounter Care Teams Sas Architect Relationship Specialty Start Date End Date Shrada Elias APRN [address] [place] [address] PCP - General 04/03/21 Ev Tucker, RN [facility] Registered Nurse 02/01/23 Torin Ramirez MD [address] [place] [address] Consulting Physician Pediatric Cardiology 02/01/23 Elder Russell MD [address] [place] [address] Consulting Physician Cardiology 02/01/23 Daniela Jordan APRN [address] [place] [address] Nurse Practitioner Internal Medicine 02/01/23 Monalisa Issa RN [facility] Registered Nurse Cardiology 02/01/23 documented as of this encounter
--- OUTSIDE RECORDS SUMMARY | 2025-07-05 12:14 | XMS_ITS | Clinical Summary ---
Author Organization [facility] Address [address] [place] [address] Phone Care Team Providers Care Precision Aircraft Systems Assembler Name Role Phone Unavailable Primary Care Provider Unavailabl e Allergies No known active allergies Medications acetaminophen (CHILDREN'S TYLENOL) 160 mg/5 mL suspensionIndica tions:Fever Take by mouth every 4 hours as needed. Active Active Problems Problem Noted Date Diagnosed Date Viral upper respiratory illness 01/11/2012 Fever 01/11/2012 Back pain 01/11/2012 Lesion of skin of face 01/11/2012 Abrasion of elbow, left 01/11/2012 Immunizations Immunization Administration Dates Next Due DTaP 05/28/2005, 2,2001,2000,2001 Hepatitis B, Unspecified Formulation 2001, 2001,2001 HiB, Unspecified Formulation 10/05/2002, 04/02/2002,2001,2000,2001 IPV 05/16/2009, 2,04/02/2002,2000,2001 MMR 05/28/2005,07/06/2002 Pneumococcal Patient Reported 05/28/2005 Varicella 05/16/2009,07/06/2002 Medical History Medical History Date Comments Pneumonia Mesenteric adenitis Impetigo Family History Relation Name Status Comments Father Alive Mother Alive Social History Tobacco Use Types Packs/Day Years Used Date Smoking Tobacco: Never Smokeless Tobacco: Never Alcohol Use Standard Drinks/Week Comments No 0 (1 standard drink = 0.6 oz pur e alcohol) Sexually Active Control Partners Comments Never Sex and Gender Information Value Date Recorded Sex Assigned at Not on file Legal Sex Male 9:13 PM EDT Gender Identity Not on file Sexual Orientation Not on file Obstetrics History Last Filed Vital Signs Vital Sign Reading Time Taken Comments Blood Pressure 98/72 06/29/2013 2:49 PM EDT Pulse 91 06/29/2013 2:49 PM EDT Temperature 36.5 C (97.7 F) 06/29/2013 2:49 PM EDT Respiratory Rate - - Oxygen Saturation 99% 06/29/2013 2:49 PM EDT Inhaled Oxygen Concentration - - Weight 54 kg (119 lb) 06/29/2013 2:49 PM EDT Height 151.1 cm (4' 11.5 ) 06/29/2013 2:49 PM ED T Body Mass Index 23.63 06/29/2013 2:49 PM EDT Plan of Treatment Health Maintenance Due Date Last Done Comments Annual Wellness Exam 2004 DTaP/TDaP/Td (6 - Tdap) 2012 05/28/20 05, 10/05/2002, 2001, Additional history exists HPV (2 - Male 2-dose series) 12/30/2013 06/29/2013 ( Declined) COVID-19 Vaccine (2023- season) 2024 Influenza Vaccine (#1) 2025 Hepatitis B Vaccine Completed 2001, 2001, 2001 Meningococcal B Vaccine Aged Out No l onger eligible based on patient's age to complete this topic Pneumococcal Vaccine 0-49 Aged Out No longer eligible based on [place] [id number] NANCY
== END 2025-07-03 23:59 | disposition home or self-care (01) ==
LOC: LAB.DROPOF 07-05 12:13
PROVIDERS: PCP Nurse Practitioner Family; Visit Provider Student in an Organized Health Care Education/Training Program
DX: J06.9 Acute upper respiratory infection, unspecified (principal)
CPT/HCPCS: 87631

== ENCOUNTER 2025-09-07 06:06 | Emergency (ER) | payer BC, SELFPAY ==
[2025-09-07 06:11] VITALS: BP 123/72; PULSE 75; O2SAT 97
[2025-09-07 06:13] VITALS: BP 123/72; PULSE 71; RESP 16; TEMP 36.9; O2SAT 98; BMI 25.8
--- OUTSIDE RECORDS SUMMARY | 2025-09-07 06:13 | XMS_ITS | Clinical Summary ---
Author Organization [facility] Address [address] [place] [address] Care Team Providers Care Rent And Housing Investigator Name Role Phone Walker Farah MD Primary Care Provider [phone] Source Comments [facility] is fully rolled out with thefollowing exceptions:General Clinical Research [facility] Allergies No known active allergies Medications No [...] of 3 - 19+ 3-dose series) 2020 AMB SEASONAL FLU VACCINE (#1) 07/22/2025 COVID-19 Vaccine (1 - 2023-2 5 season) 2025 HIB IMMUNIZATION Aged Out No longer e [...] complete this topic Insurance NANCY ANGELA NON-TRADITIONAL [facility] Address: [facility] [address] [place] [address] Care Teams Rent And Housing Investigator Relationship Specialty Start Date End Date Walker Farah MD [address] [place] [address] PCP - General External Family Practice 01/26/18
--- OUTSIDE RECORDS SUMMARY | 2025-09-07 06:13 | XMS_ITS | Patient Health Record ---
Author Organization [facility] Address [address] [facility] [address] [id number] Support Name Relationship Address Phone BILLS, OPAL Emergency Contact [address] [phone] ANDREA JOEL Guarantor Unknown Reason For Referral No Information Medications Medication SIG (Take, Route, Fr equency, Duration) Notes Start Date End Date Status ZyrTEC Allergy 10 MG 1 tab(s) orally once a day Active Problems No Known Problems Plan Of Treatment No Information Insurance Providers Payer Name Payer Address Payer Phone Subscriber Number Group Number Insured Name Patient Relationship to Insured Coverage Start Date Coverage End Date NANCY ANGELA CROSSUE SID [address] [place] [address] [phone] [id number] ANDREA JOEL Self - patient is the insured Medical (General) History Hospitalization History Reason Date(Month/Year)
--- OUTSIDE RECORDS SUMMARY | 2025-09-07 06:13 | XMS_ITS | Encounter Summary ---
Author Organization [facility] Address [address] [place] [address] Care Team Providers Care Bistro Attendant Name Role Phone Sharda Elias Perry YARN TEXTURE MACHINE OPERATOR Primary Care Provider [phone] Ev Tucker RN Unavailable Unavailable Torin Ramirez MD Unavailable Elder Russell MD Unavailable [phone] Daniela Jordan YARN TEXTURE MACHINE OPERATOR Unavailable [phone] Monalisa Issa RN Unavailable Unavailable Reason for Referral * Imaging (Routine) - Closed Specialty Diagnoses / Procedures Referred By Contac t Referred To Contact Cardiology Diagnoses Bicuspid aortic valve Procedures Echo , Adult Congenital Transthoracic (TTE) Complete Elder Russell MD [address] [place] [address] Phone: tel: fax: Referral ID Status Reason Start Date Expiration Date V isits Requested Visits Authorized [id number] Closed Perform Procedure 04/15/2021 10/12/2021 1 1 Encounter Details Date Type Department Care Team (Late st Contact Info) Description 04/15/2021 Orders Only [facility] [place] [address] [facility]. [address] [place] [address] Mariajose Gillette [facility] [address] [place] [address] Bicuspid aortic valve (Primary Dx) Social History [...] acc time 140 msec BETZY ISCV PA [place](ACCEL) 15.6 mmHg BETZY ISCV PA acc slope [...] valve documented in this encounter Care Teams Bistro Attendant Relationship Specialty Start Date End Date Sharda Elias APRN [address] [place] [address] PCP - General 04/03/21 Ev Tucker, RN [facility] Registered Nurse 02/01/23 Torin Ramirez MD [address] [place] [address] Consulting Physician Pediatric Cardiology 02/01/23 Elder Russell MD [address] [place] [address] Consulting Physician Cardiology 02/01/23 Daniela Jordan APRN [address] [place] [address] Nurse Practitioner Internal Medicine 02/01/23 Monalisa Issa RN [facility] Registered Nurse Cardiology 02/01/23 documented as of this encounter
--- OUTSIDE RECORDS SUMMARY | 2025-09-07 06:13 | XMS_ITS | Clinical Summary ---
Author Organization [facility] Address [address] [place] [address] Phone Care Team Providers Care Forklift Mechanic Name Role Phone Unavailable Primary Care Provider [...] series) 12/30/2013 06/29/2013 ( Declined) COVID-19 Vaccine ( - 2024- season) 2025 Influenza Vaccine (#1) 2025 Hepatitis B Vaccine Completed 2001, 2001, 2001 Meningococcal B Vaccine Aged Out No l onger eligible based on patient's age to complete this topic Pneumococcal Vaccine 0-49 Aged Out No longer eligible based on patient's age to complete this topic Insurance ALIZE ALLEN, [place] [id number] NANCY
--- OUTSIDE RECORDS SUMMARY | 2025-09-07 06:13 | XMS_ITS | Data Portability ---
Author Organization [facility] Address [address] [place] [address] Assessment Encounter Date Assessment Date Assessment LastModified by Organization Details LastModified Time 08/25/2022 08/25/2022 I have reviewed the scrotal ultrasound and discussed the findings in detail with the patient. Have also discussed several concerns with the patient. I have answered numerous questions for him and given him reassurance on several levels. I have discussed an array of options for management of the varicocele which include a watch and wait approach versus procedural options to fix/repair. Some potential risks and outcomes discussed. I also explained him the potential fertility risks in regard to a varicocele. He is not and does not have any children currently. He is not planning on having any children in the near future. I have offered to set up an SFA to see if he is having any end-organ effects of the varicocele on fertility, however, he declines for now. RTC p.r.n.. [email or web address] Not available 08/25/2022 15:24:35 Plan of Treatment Reminders Order Date Submit Date Provider Last Modified By Organization Details Last Modified Time Details Appointments None recorded. Lab urinalysis , dipstick 2021 022 [email or web address] [facility], [address] [facility], [address], [place], [address], 16:30:50 Referral None recorded. Procedures None recorded. Surgeries None recorded. Imaging None recorded. Medication Orders None recorded. Patient TargetsNo targets recorded. Patient InstructionsNo instructions recorded. Reason for Referral None Reported. Results Created Date Observation Date Name Description Value Unit Range Abnormal Flag Note LastModifiedBy Organization Detail LastModifiedTime 08/25/2008/25/2022 urina lysis , dipst ick Leukocytes (reference range) negati ve Not Available [address] [facility], [place], [address], 08/25/2022 14:47:29 08/25/20 22 08/25/2022 urina lysis , dipst ick Nitrite (reference range:) negati ve Not Available [address] [address], [place], [address], 08/25/2022 14:47:29 08/25/2008/25/2022 urina lysis , dipst ick Urobilinogen (reference range) 0.2 Not Available [address] [address], [place], [address], 08/25/2022 14:47:29 08/25/20 22 08/25/2022 urina lysis , dipst ick Protein (reference range) negati ve Not Available [address] [address], [place], [address], 08/25/2022 14:47:29 08/25/20 22 08/25/2022 urina lysis , dipst ick pH (reference range 5-8.5) 6.0 Not Available [address], [address], 08/25/2022 14:47:29 08/25/2008/25/2022 urina lysis , dipst ick Blood (reference range:) negati ve Not Available [address] [address], [place], [address], 08/25/2022 14:47:29 08/25/20 22 08/25/2022 urina lysis , dipst ick Specific [place] (reference range) 1.010 Not Available [address], [address], 08/25/2022 14:47:29 08/25/20 22 08/25/2022 urina lysis , dipst ick Ketone (reference range) negati ve Not Available [facility] [address] [place] [address] [address], [place], [address], 08/25/2022 14:47:29 08/25/20 22 08/25/2022 urina lysis , dipst ick Bilirubin (reference range) negati ve Not Available [facility] [address] [place] [address] [address], [place], [address], 08/25/2022 14:47:29 08/25/20 22 08/25/2022 urina lysis , dipst ick Glucose (reference range) negati ve Not Available [address], [place], [address], 08/25/2022 14:47:29 08/25/20 22 08/25/2022 urina lysis , dipst ick Color (reference range: yellow-brown ) Pale Yellow Not Available [address], [place], [address], 08/25/2022 14:47:29 08/30/20 22 07/13/2022 US, testi anthony No observ ation record ed. [facility] [address], [id number], 08/30/2022 10:00:05 Result Notes None recorded. Problems Name Problem SNOMED Code Status Onset Date Resolution Date Notes Provider Name and Address Organization Details Recorded Time Erectile dysfunction 582378641 Active 2021 [facility] [place] [facility] 10:44:05 Anxiety 57176473 Active 2021 [facility] [place] [facility] [place] 10:44:14 Bicuspid aortic valve 87132202 Active 2021 Mar[facility] [place] 10:44:35 Problem Notes None recorded. Medical Equipment None Reported. Allergies No known drug allergies Medications Name Sig Start Date Stop Date Status Note LastModified by Organization Details LastModified Time acyclovir 400 mg tablet Take 1 tablet twice a day by oral route. active Not Available Not Available No t Available famciclovir 500 mg tablet active Not Available Not Availabl e Not Available Vitals Date Recorded Body height Body mass index (BMI) Body weight Body temperature Systolic And Diastolic Provider Name and Address Organization Details Last Updated DateTime 08/25/2022 175.26 cm 23.4 kg/m2 58868.7 5 g 98.2 [degF] 118/68 mm[Hg] Marium [facility] [place] 14:40:24 Social History None recorded. Functional Status Question Answer Note LastModified by Organizat ion Details LastModified Time Do you use any illicit or recreational drugs? No [email or web address] Information not available 08/17/2022 What is your level of alcohol consumption? Occasional [email or web address] Information not available 08/25/2022 Mental Status None recorded. Family History Relationship Description Onset Age of this Age Resolved Age Notes LastModified by Organization Details LastModified Time Father No current problems or disability [email or web address] Not available 08/17 13:30:32 Mother No current problems or disability [email or web address] Not available 08/17 13:30:32 Medical History Condition Response Heart Disease Y Past Encounters Encounter ID Performer Location Encounter Start Date Encounter Closed Date Diagnosis/Indication Diagnosis SNOMED-CT Code Diagnosis ICD10 Code Diagnosis IMO Codes Diagnosis Note [id number] Jermaine Park MD [facility] [address] [facility] [place] [address] 08/25/2022 14:32:22 08/25/2022 15:20:08 Varicocele 12202904 I86.1 Pain in scrotum 73723067 N50.82 mild Health Concerns Section Related Observation LastModified by Organization Detai ls LastModified Time None Recorded Concern Status LastModified by Organization Details LastModified Time None Recorded Advance Directives Directive None Recorded Payers Insurance Date Sequence Insurance Name Policy Number Policy Monreal Covered Member ID Monreal Member ID Guarantor Name 08/25/2022 1 [place] (O) [id number] Ranjit Evelia [id number] Ranjit Evelia Notes Date Note Type Note Provider Name and Address Organization Details Recorded Time 08/25/2022 text/html ROS as noted in the HPI Patient presents to clinic for left testicle pain and varicocele. Pain is dull. No discoloration. Left lump - he states he noticed when he gets an erection it isn't as good. Started a couple months prior to June 2022. Symptoms include: swelling/bulging of left testicular, occasional pain/dull ache. Patient has ED, lump. No hematospermia. Has not effected urinary stream. No hematuria. No nocturia. Patient had keila testicular exam at PCP [facility] on 07/13/22, but no prior urologist. Patient is not and dows not have any children at this time. The patient has noticed this gradually over time. He does noted more so when he is in a warm environment or when he is taking a shower. 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 He does do some heavy lifting and works long hours and does endure significant stress. The patient has had a scrotal ultrasound which showed a moderate size left varicocele but no other significant abnormality. Jermaine Park MD [address], [place], [address], [place] [facility] [place] [facility] [place] 08/25/2022 15:25:02
--- OUTSIDE RECORDS SUMMARY | 2025-09-07 06:13 | XMS_ITS | Clinical Summary ---
Author Organization Healthcare Address [address] [place] [address] Care Team Providers Care Day Care Provider Name Role Phone EliasJenifer rajanpablo Amador BEE PRODUCER Primary Care Provider [phone] Ev Tucker RN Unavailable Unavailable Torin Ramirez MD Unavailable Elder Russell MD Unavailable [phone] Daniela Jordan APRN Unavailable [phone] Monalisa Issa RN Unavailable Unavailable Allergies No [...] Date Last Done Comments [facility]-Depression Screening 2001 [facility]-/Child/Adol SDOH Screenings 2001 [facility]-Obesity Intervention 2007 HPV Vaccines (1 - Male 3-dose series) 2016 [facility]- SDOH Screenings 2019 [facility]-Adult SDOH Screenings 2019 [id number] Vaccine (1 - season) 2025 [facility]-Influenza Vaccine (#1) 2025 [facility]-DTaP,Tdap,and Td Vaccines [...] 7:16 PM EDT 04/27/2024 7:43 PM EDT iX Ramesh MD LAB BLOOD ORDERABLES Final Re sult Performing Organization Address City/[facility] Co de Phone Number [facility] [address] [place] [address] * Hepatitis C Antibody - ED (04/27/2024 7:16 PM EDT) Hepatitis C Antibody Negative Negative 04/27/2024 8:25 PM EDT [facility] Blood Venous blood specimen / Unknown Venipuncture / Unknown 04/27/2024 7:16 PM EDT 04/27/2024 7:43 PM EDT Xi Ramesh MD LAB BLOOD ORDERABLES Final Re sult Performing Organization Address City/State/[facility] Co de Phone Number [facility] [address] [place] [address] from Last 3 Months or Most Recently Relevant to Health Maintenance Insurance [facility] Member Subscriber Plan / Payer (Ef fective 2019-Present) Name:ANDREA JOEL Relation to Subscriber:Child Name:APPLE CALDERA Date of :2001 (Home) Address: [address] [place] [address] Payer ID:[id number] (NAIC) Type:Not on file Address: [address] Care Teams Day Care Provider Relationship Specialty Start Date End Date Sharda Elias APRN [address] [place] [address] PCP - General 04/03/21 Ev Tucker RN [facility] Registered Nurse 02/01/23 Torin Ramirez MD [address] [place] [address] Consulting Physician Pediatric Cardiology 02/01/23 Elder Russell MD [address] [place] [address] Consulting Physician Cardiology 02/01/23 Daniela Jordan APRN [address] [place] [address] Nurse Practitioner Internal Medicine 02/01/23 Monalisa Issa RN [facility] Registered Nurse Cardiology 02/01/23
[2025-09-07 06:21] VITALS: BP 123/72; PULSE 71; RESP 16; TEMP 36.9; O2SAT 98
[2025-09-07 06:37] VITALS: BP 123/72; PULSE 71; RESP 16; TEMP 36.8; O2SAT 98
--- NOTE | 2025-09-07 06:37 | ED_ITS ---
Discharge Plan Disposition Patient Disposition: Home, Self-Care Condition: Good Prescriptions Prescriptions: New ondansetron 4 mg tablet,disintegrating 4 mg PO Q6H PRN (Reason: nausea and vomiting) Qty: 10 0RF No Action lyoockhlzatshrh-dqpzjhggo-EP [Bromfed DM] 2-30-10 mg/5 mL syrup 5 ml PO Q4-6H PRN (Reason: cold symptoms) Qty: 118 0RF Referrals Follow up/Referrals: Sharda Elias APRN [Primary Care Provider, Medical] - See instructions Activity Restrictions/Add. Instructions Additional Instructions/Restrictions: You were evaluated in the ER and are believed to be appropriate for discharge at this time. Take the prescribed Zofran (ondansetron) if needed for nausea. Drink plenty of fluids including water, Gatorade, Pedialyte to stay hydrated. Follow-up with your primary care doctor for reevaluation in a few days. As discussed if you develop bloody diarrhea, new fevers, severe abdominal pain, abdominal distention, those would be reasons to return to the ER. Return to the ER with any other new, worsening, or otherwise concerning symptoms. Clinical Impressions Clinical Impression: Diarrhea Instructions Patient Instructions: DI for Diarrhea and Traveler's Diarrhea in Adults, DI for Diarrhea and Traveler's Diarrhea in Children, DI for Nausea in Adults, DI for Nausea in Children Print Language Print Language: Ukrainian Discharge ED Provider: Kayleen James Adult HPI General Chief complaint: Nausea/Vomiting/Diarrhea Stated complaint: diarrhea, abd pain, dehydration Time Seen by Provider: 09/07/25 06:23 Mode of Arrival: Ambulatory Source of Information: Patient Description of Symptoms (Recalled from ER Triage Doc. by RN): PT presents to the ED for evaluation of diarrhea. PT stated that on 09/04/2025 he started to feel nauseous, on 09/05/2025 he started to have diarrhea and has continued. PT stated he took antidiarrhea medication on 09/06/2025 and hasnt had any diarrhea since 0200 on this date. History of Present Illness HPI narrative: 25-year-old male presents to the ER with 2 days of diarrhea. Patient reports 3 days ago he had subjective fever, generally did not feel well with flulike symptoms . I states the next day he started having diarrhea and has had diarrhea since that time. He took antidiarrheal medication yesterday and has not had diarrhea yet this morning. He is not having any vomiting. He denies headache or dizziness, no focal abdominal pain or distention. He states his appetite is decreased and he is primarily worried that he thought his diarrhea should have resolved because usually things like this only last 1 or 2 days and he was worried about becoming dehydrated. He states he has been drinking a lot trying to avoid dehydration. He denies bloody or melanotic stool. He denies any ongoing fevers. No chest pain or difficulty breathing, no other complaints or concerns. Related Data Previous Rx's ?Medication ?Instructions ?Recorded zketwfrcvikqmdr-uzmcmuzimqcstes-IW 5 ml PO Q4-6H PRN c old symptoms 07/03/25 2 mg-30 mg-10 mg/5 mL oral syrup #118 mL (Bromfed DM) ondansetron 4 mg disintegrating 4 mg PO Q6H PRN nausea and 09/07/25 tablet vomiting #10 tabs Allergies Allergy/AdvReac Type Severity Reaction Status Date / Time No Known Allergies Allergy Verified 09/07/25 06:34 [facility] Disclaimer: The information contained in this section may have been updated after the patient was seen, as this information can be updated by other users. Medical History Acute respiratory failure with hypoxia Mesenteric adenitis Bicuspid aortic valve Surgical History Hx of appendectomy H/O wisdom tooth extraction Social History Smoking Status: Never smoker alcohol intake: never substance use type: denies use current occupational status: other Travel in the last 8 weeks?: None Have you lived/traveled outside [place] in past 30 days?: No Contact w/someone who lives/traveled outside [place] past 30 days?: No Exposure to someone with infectious disease in past 14 days?: No Do you have a fever (greater than 100.4 F or 38 C)?: No Have you tested positive for COVID-19?: No Exposed to someone with COVID-19 in past 14 days?: No Do you have a sore throat?: No Do you have a cough?: No Do you have any weakness?: No Do you have any diarrhea?: Yes Are you experiencing any unusual bleeding?: No Do you have any muscle aches/pain?: No Do you have any abdominal pain?: Yes Are you experiencing loss of taste or smell?: No Other Medical History Have you received the Flu Vaccine for this season: No Have you received the Pneumonia Vaccine: No ROS Obtained: Yes Systems reviewed as appropriate & no additional complaints except as documented Per HPI Physical Exam General General appearance: alert and in no apparent distress Head Head exam: atraumatic and normocephalic Eye Eye exam: Present PERRL and EOMI ENT ENT exam: Present mucous membranes moist Neck Neck exam: Present normal inspection and full ROM Chest Chest inspection: Present symmetric chest wall rise Respiratory Respiratory exam: Present normal lung sounds bilaterally; Absent respiratory distress, wheezes or stridor Cardiovascular Cardiovascular exam: Present regular rate and normal rhythm Abdominal Exam Abdominal exam: Present soft; Absent distention, tenderness, guarding or rebound Comment: Abdomen soft, nontender, nondistended, normal percussion Extremities Exam Extremities exam: Present full ROM and normal capillary refill; Absent edema Neurological Exam Neurological exam: Present alert and oriented X3; Absent motor sensory deficit Psychiatric Psychiatric exam: Present normal affect and normal mood Skin Skin exam: Present warm, dry and other (Good skin turgor) Medical Decision Making Medical Records Medical records reviewed: Yes I reviewed the patient's medical records. Screening: Per USPSTF and CDC recommendations, given the prevalence of disease in our region, it is our hospital?s policy to screen for HIV and viral Hepatitis for all patients aged 18 and over and those with ongoing risk factors. [place] Inquiry Pt receiving controlled substance: No Vital Signs: 09/07/25 06:11 09/07/25 06:13 09/07/25 06:21 Temperature 98.4 F 98.4 F Temperature Source Oral Oral Pulse Rate 75 71 Pulse Rate [Right] 71 Respiratory Rate 16 16 Blood Pressure 123/72 123/72 Blood Pressure [Right Arm] 123/72 Blood Pressure Mean [Right Arm] 89 02 Sat by Pulse Oximetry 97 98 98 Oxygen Delivery Method Room Air Room Air 09/07/25 06:37 Temperature 98.3 F Temperature Source Oral Pulse Rate 71 Pulse Rate [Right] Respiratory Rate 16 Blood Pressure 123/72 Blood Pressure [Right Arm] Blood Pressure Mean [Right Arm] 02 Sat by Pulse Oximetry Oxygen Delivery Method Room Air Orders (Tests/Meds): ED MEDICATIONS Generic Name Dose Route Start Last Admin Trade Name Hiram PRN Reason Stop Dose Admin Ondansetron HCl 4 mg 09/07/25 06:35 Ondansetron 4mg Odt SL 09/07/25 06:36 ONCE ONE ORDERS Category Date Time Status HIV Combo Stat Lab 09/07/25 06:21 Ordered Hepatitis C Ab Qual. W/ RFX Stat Lab 09/07/25 06:21 Ordered Medical Decision Narrative: In summary, this 25-year-old male with no known chronic medical conditions, no daily medications, no known drug allergies presents to the emergency department today with diarrhea. On initial evaluation patient is hemodynamically stable, afebrile, GCS 15, ambulatory into the ER, benign cardiopulmonary exam, abdominal exam with no distention, tenderness, rebound, or guarding. Normal percussion. Differential diagnosis includes but is not limited to viral syndrome, I considered the possibility of electrolyte abnormality or dehydration but have low suspicion for this since patient states he has been able to tolerate liquids by mouth very well and has been intentionally drinking more fluids to stay hydrated. He has good skin turgor, moist mucous membranes, no dry or chapped lips and states urine output has been normal. This in the setting of normal vitals and otherwise reassuring exam is very reassuring against dehydration and I have low suspicion for electrolyte abnormality either. With patient's very benign exam I do not believe he requires any labs or imaging since he is an otherwise healthy young male and has been tolerating oral intake. He is agreeable to this. I provided a dose of Zofran in the ER to help with his mild nausea and hopefully encouraged him to eat a balanced diet while still feeling ill. I counseled and educated him on no longer using the antidiarrheal medications due to the risk of complications and prolonging illness. I gave the patient instructions on continued symptomatic monitoring and management, use of the newly prescribed Zofran, follow-up instructions, and return precautions for the ER. He indicated understanding and the patient was discharged in stable condition. Critical Care Critical Care Time Critical Care Time: No
[2025-09-07] MEDS: ONDANSETRON 4MG ODT 4 MG SL (06:41)
== END 2025-09-07 06:44 | disposition home or self-care (01) ==
PROVIDERS: Emergency Provider Emergency Medicine; PCP Nurse Practitioner Family
DX: R19.7 Diarrhea, unspecified (principal)
CPT/HCPCS: 99283; 99284; Q0162